=== PATIENT | female | born 1970 | race Caucasian/White ===

== ENCOUNTER 2020-10-01 11:04 | Outpatient (REF) | payer OTHER, SELFPAY ==
[2020-10-01 12:18] LABS: MANUAL DIFF FLAG NO
[2020-10-01 13:06] LABS: Basophils Percent Auto 0.4 % (0-2); Eosinophils Absolute Auto 0.1 X10*3/uL (0.0-0.4); Eosinophils Percent Auto 1.6 % (0-4); Hematocrit 43.3 % (37-47); Hemoglobin 14.6 g/dl (12.0-16.0); Imm Gran Abs Auto 0.02 X10*3/uL (0.00-0.03); Imm Gran Pct Auto 0.3 % (0.0-0.4); Lymphocytes Absolute Auto 2.1 X10*3/uL (1.2-4.9); Lymphocytes Percent Auto 29.9 % (20-40); Mean Corpuscular HGB Conc 33.7 g/dl (31.0-35.0); Mean Corpuscular Hemoglobin 31.1 pg (27.0-33.0); Mean Corpuscular Volume 92.1 fL (80-98); Mean Platelet Volume 12.8 fL (9.4-12.3); Monocytes Absolute Auto 0.6 X10*3/uL (0.1-1.2); Monocytes Percent Auto 8.3 % (2-11); Neutrophils Absolute Auto 4.1 X10*3/uL (2.0-8.3); Neutrophils Percent Auto 59.5 % (45-73); Platelet Count 199 X10*3/uL (160-400); Red Cell Distribution Width 12.3 % (11.0-16.0); White Blood Count 6.9 X10*3/uL (4.8-10.8)
[2020-10-01 13:16] LABS: Alanine Aminotransferase 15 U/L (0-31); Albumin Level 4.4 g/dL (3.5-5.0); Alkaline Phosphatase 46 U/L (39-117); Anion Gap 12 (12-20); Aspartate Amino Transferase 20 U/L (5-31); Bilirubin Total 0.7 mg/dL (0.0-1.0); Blood Urea Nitrogen 10 mg/dL (9-16); Calcium 9.1 mg/dL (8.4-10.2); Carbon Dioxide 26 mmol/L (22-29); Chloride 100 mmol/L (96-108); Cholesterol 189 mg/dL; Estimated Glomerular Filt Rate > 60; Glucose Fasting 82 mg/dL (60-99); HDL Cholesterol 50 mg/dL; LDL Cholesterol Calculated 101 mg/dl; Potassium 4.2 mmol/l (3.3-5.1); Total Protein 8.1 g/dL (6.5-8.0); Triglycerides 192 mg/dL
[2020-10-01 13:19] LABS: Sodium 134 mmol/L (135-145)
[2020-10-01 13:40] LABS: TSH reflex Free T4 1.41 mIU/mL (0.32-4.0)
[2020-10-01 13:58] LABS: Estimated Average Glucose 103 mg/dL; Hemoglobin A1c % 5.2 %
== END 2020-10-01 11:05 | disposition home or self-care (01) ==
LOC: HO.LAB 11:04
PROVIDERS: PCP Physician Assistant; Visit Provider Physician Assistant
DX: Z13.29 Encounter for screening for other suspected endocrine disorder (principal); E78.9 Disorder of lipoprotein metabolism, unspecified
CPT/HCPCS: 36415; 80053; 80061; 83036; 84443; 85025

== ENCOUNTER 2020-11-04 07:54 | Outpatient (REF) | payer OTHER, SELFPAY ==
--- NOTE | 2020-11-04 07:57 | MM_ITS ---
EXAMINATION: MM SCREENING DIGITAL BREAST TOMOSYNTHESIS, BILATERAL CLINICAL INFORMATION: Screening. Asymptomatic. The lifetime risk of breast cancer based on the Tyrer-Cuzick Model is 7%. COMPARISON: Mammography: 01/16/2019, 07/14/2017, 08/13/2014 TECHNIQUE: Digital breast tomosynthesis is performed in both the craniocaudal and mediolateral oblique views along with computer-aided detection (CAD). Synthesized 2D images are generated from the tomosynthesis. Additional exaggerated right CC view is provided. FINDINGS: The breasts are heterogeneously dense, which may obscure small masses (ACR BI-RADS breast composition Category c). There are no significant masses, abnormal calcifications, or other abnormalities. The axilla and skin contours are unremarkable. MM/MM tomosynthesis screening BI IMPRESSION: No mammographic evidence of malignancy. ASSESSMENT: BI-RADS 1: Negative RECOMMENDATION: Routine annual mammography screening. This patient's information was entered into a reminder system with a target due date for their next mammogram.
== END 2020-11-04 07:55 | disposition home or self-care (01) ==
LOC: HO.MAMMO 07:54
PROVIDERS: PCP Physician Assistant; Visit Provider Physician Assistant
DX: Z12.31 Encounter for screening mammogram for malignant neoplasm of breast (principal)
CPT/HCPCS: 77063; 77067

== ENCOUNTER 2020-11-10 14:33 | Outpatient (REF) | payer OTHER, SELFPAY ==
[2020-11-10 15:23] LABS: COVID-19 Test Negative (Negative); IDNOW Serial# 55D5AD1C
== END 2020-11-10 14:34 | disposition home or self-care (01) ==
LOC: HO.EMPCOV 14:33
PROVIDERS: PCP Physician Assistant; Visit Provider Internal Medicine
DX: Z20.828 Contact with and (suspected) exposure to other viral communicable diseases (principal)
CPT/HCPCS: 87635; C9803

== ENCOUNTER 2020-11-17 13:25 | Outpatient (REF) | payer OTHER, SELFPAY ==
[2020-11-17 14:04] LABS: COVID-19 Test Negative (Negative)
== END 2020-11-17 13:26 | disposition home or self-care (01) ==
LOC: HO.EMPCOV 13:25
PROVIDERS: Visit Provider Internal Medicine
DX: Z20.828 Contact with and (suspected) exposure to other viral communicable diseases (principal)
CPT/HCPCS: 87635; C9803

== ENCOUNTER 2021-01-06 07:45 | Outpatient (REF) | payer OTHER, SELFPAY ==
[2021-01-06 08:04] LABS: COVID-19 Test Negative (Negative); IDNOW Serial# 55D5AD1C
== END 2021-01-06 07:46 | disposition home or self-care (01) ==
LOC: HO.EMPCOV 07:45
PROVIDERS: Visit Provider Internal Medicine
DX: Z20.822 Contact with and (suspected) exposure to COVID-19 (principal)
CPT/HCPCS: 36415; 87635; C9803

== ENCOUNTER 2021-01-07 12:24 | Outpatient (REF) | payer OTHER, SELFPAY ==
[2021-01-07 12:44] LABS: COVID-19 Test Positive (Negative)
== END 2021-01-07 12:25 | disposition home or self-care (01) ==
LOC: HO.LAB 12:24
PROVIDERS: Visit Provider Internal Medicine
DX: Z20.822 Contact with and (suspected) exposure to COVID-19 (principal)
CPT/HCPCS: 87635; C9803

== ENCOUNTER 2021-02-20 13:59 | Outpatient (REF) | payer OTHER, SELFPAY ==
[2021-02-21 07:24] LABS: SARS COV2 IgG Positive (Negative)
== END 2021-02-20 14:00 | disposition home or self-care (01) ==
LOC: HO.HMGCLDS 13:59
PROVIDERS: Hospitalist; Visit Provider Nurse Practitioner Family
DX: U07.1 COVID-19 (principal)
CPT/HCPCS: 36415; 86769

== ENCOUNTER 2021-04-08 13:10 | Outpatient (REF) | payer OTHER, SELFPAY ==
[2021-04-09 04:26] LABS: SARS COV2 IgG Positive (Negative)
== END 2021-04-08 13:11 | disposition home or self-care (01) ==
LOC: HO.HMGCLDS 13:10
PROVIDERS: PCP Physician Assistant; Visit Provider Physician Assistant
DX: U07.1 COVID-19 (principal); Z01.84 Encounter for antibody response examination
CPT/HCPCS: 36415; 86769

== ENCOUNTER 2021-06-23 16:04 | Outpatient (REF) | payer OTHER, SELFPAY ==
--- NOTE | ~2021-06-23 | XR_ITS ---
EXAMINATION: XR LUMBOSACRAL SPINE CLINICAL INFORMATION: Lower back pain. COMPARISON: None TECHNIQUE: Three views of the lumbosacral spine. FINDINGS: There are 5 plc-ooh-fajscbt lumbar vertebrae. The bony texture and alignment are satisfactory. No acute fracture, spondylolisthesis, or spondylolysis identified. Disc spaces are maintained. No evidence of facet arthropathy. No significant sacroiliac joint abnormality is seen. XR/XR lumbar spine 2-3V IMPRESSION: No significant lumbar spine abnormality appreciated.
--- NOTE | ~2021-06-23 | XR_ITS ---
EXAMINATION: XR CERVICAL SPINE CLINICAL INFORMATION: Neck pain. COMPARISON: 01/21/2017 TECHNIQUE: Three views of the cervical spine were obtained. FINDINGS: No abnormal prevertebral soft tissue swelling is seen. No acute cervical spine fracture is noted. Bony alignment unremarkable. There is some spurring of the joints of Luschka seen at the C3-C4 and C4-C5 levels, but without oblique views, difficult to tell what degree of neural foraminal encroachment may be present. Disc spaces are maintained. XR/XR cervical spine 3V IMPRESSION: No evidence of acute fracture of the cervical spine. Mild degenerative change is seen at the C3-C4 and C4-C5 levels, similar to study of 01/21/2017.
== END 2021-06-23 16:05 | disposition home or self-care (01) ==
LOC: HO.HMGCX 16:04
PROVIDERS: PCP Physician Assistant; Visit Provider Physician Assistant
DX: M99.01 Segmental and somatic dysfunction of cervical region (principal); M54.5 Low back pain
CPT/HCPCS: 72040; 72100

== ENCOUNTER 2021-06-27 13:57 | Outpatient (REF) | payer OTHER, SELFPAY ==
[2021-06-29 03:41] LABS: SARS COV2 IgG Positive (Negative)
== END 2021-06-27 13:58 | disposition home or self-care (01) ==
LOC: HO.HMGCLDS 13:57
PROVIDERS: PCP Physician Assistant; Visit Provider Physician Assistant
DX: Z20.822 Contact with and (suspected) exposure to COVID-19 (principal)
CPT/HCPCS: 36415; 86769

== ENCOUNTER 2021-09-21 11:48 | Outpatient (REF) | payer OTHER, SELFPAY ==
--- NOTE | ~2021-09-21 | XR_ITS ---
EXAMINATION: XR HAND, LEFT CLINICAL INFORMATION: Pain in the left hand COMPARISON: None TECHNIQUE: PA, lateral, and oblique views of the left hand. FINDINGS: No fracture or dislocation. Alignment is anatomic. Joint spaces are maintained. The soft tissues are unremarkable. XR/XR hand LT min 3V IMPRESSION: Normal left hand.
== END 2021-09-21 11:49 | disposition home or self-care (01) ==
LOC: HO.HMGCX 11:48
PROVIDERS: PCP Physician Assistant; Visit Provider Physician Assistant
DX: M79.642 Pain in left hand (principal)
CPT/HCPCS: 73130

== ENCOUNTER 2021-10-05 09:07 | Outpatient (REF) | payer OTHER, SELFPAY ==
[2021-10-05 10:12] LABS: Estimated Average Glucose 94 mg/dL; Hemoglobin A1c % 4.9 %
[2021-10-05 10:24] LABS: Alanine Aminotransferase 20 U/L (0-31); Albumin Level 4.3 g/dL (3.5-5.0); Alkaline Phosphatase 72 U/L (39-117); Anion Gap 13 (12-20); Aspartate Amino Transferase 21 U/L (5-31); Bilirubin Total 0.4 mg/dL (0.0-1.0); Blood Urea Nitrogen 14 mg/dL (9-16); Calcium 9.2 mg/dL (8.4-10.2); Carbon Dioxide 26 mmol/L (22-29); Chloride 103 mmol/L (96-108); Cholesterol 200 mg/dL; Estimated Glomerular Filt Rate > 60; Glucose Fasting 92 mg/dL (60-99); HDL Cholesterol 54 mg/dL; LDL Cholesterol Calculated 124 mg/dl; Potassium 4.7 mmol/L (3.3-5.1); Sodium 137 mmol/L (135-145); Total Protein 7.8 g/dL (6.5-8.0); Triglycerides 110 mg/dL
[2021-10-05 10:48] LABS: TSH reflex Free T4 2.23 uIU/mL (0.32-4.0)
== END 2021-10-05 09:08 | disposition home or self-care (01) ==
LOC: HO.LAB 09:07
PROVIDERS: PCP Physician Assistant; Visit Provider Physician Assistant
DX: Z13.29 Encounter for screening for other suspected endocrine disorder (principal); Z78.9 Other specified health status
CPT/HCPCS: 36415; 80053; 80061; 83036; 84443

== ENCOUNTER 2021-10-26 08:05 | Outpatient (REF) | payer OTHER, SELFPAY ==
[2021-10-29 02:51] LABS: HPV mRNA E6/E7 rflx Not Detected (Not Detected)
== END 2021-10-26 08:06 | disposition home or self-care (01) ==
LOC: HO.LAB 08:05
PROVIDERS: PCP Physician Assistant; Visit Provider Obstetrics & Gynecology
DX: Z01.411 Encounter for gynecological examination (general) (routine) with abnormal findings (principal); Z11.51 Encounter for screening for human papillomavirus (HPV); N95.0 Postmenopausal bleeding
CPT/HCPCS: 87624; 88142

== ENCOUNTER 2021-11-06 07:32 | Outpatient (REF) | payer OTHER, SELFPAY ==
--- NOTE | ~2021-11-06 | MM_ITS ---
EXAMINATION: MM SCREENING DIGITAL BREAST TOMOSYNTHESIS, BILATERAL CLINICAL INFORMATION: Screening. Asymptomatic. The lifetime risk of breast cancer based on the Tyrer-Cuzick Model is 8%. COMPARISON: Mammography: 11/04/2020, 01/16/2019, 07/14/2017 TECHNIQUE: Digital breast tomosynthesis is performed in both the craniocaudal and mediolateral oblique views along with computer-aided detection (CAD). Synthesized 2D images are generated from the tomosynthesis. FINDINGS: The breasts are heterogeneously dense, which may obscure small masses (ACR BI-RADS breast composition Category c). Breast tissue composition borders on average fibroglandular. There are no significant masses, abnormal calcifications, or other abnormalities. The axillary and skin contours are unremarkable. There are incidental dermal calcifications again noted, grouped anterior upper outer right breast. MM/MM tomosynthesis screening BI IMPRESSION: No mammographic evidence of malignancy. ASSESSMENT: BI-RADS 2: Benign RECOMMENDATION: Routine annual mammography screening. This patient's information was entered into a reminder system with a target due date for their next mammogram.
== END 2021-11-06 07:33 | disposition home or self-care (01) ==
LOC: HO.MAMMO 07:32
PROVIDERS: Visit Provider Physician Assistant
DX: Z12.31 Encounter for screening mammogram for malignant neoplasm of breast (principal)
CPT/HCPCS: 77063; 77067

== ENCOUNTER 2021-11-10 09:00 | Outpatient (REF) | payer OTHER, SELFPAY ==
--- NOTE | ~2021-11-10 | US_ITS ---
EXAMINATION: US PELVIS CLINICAL INFORMATION: Postmenopausal bleeding COMPARISON: None TECHNIQUE: Ultrasound of the pelvis is performed using both transabdominal and transvaginal transducers along with Doppler. Transvaginal imaging is performed due to inadequate visualization transabdominally. FINDINGS: The uterus is anteverted and measures 8 x 4.8 x 6.1 cm in dimension. There is a 1.9 x 2.2 x 2.1 cm heterogeneous predominately hyperechoic lesion in the anterior uterine body adjacent to the endometrium suggestive of a submucosal fibroid. No other focal uterine lesion is seen. Endometrial thickness measures 0.6-0.7 cm. The ovaries are normal-appearing. The right ovary measures 3.4 x 2 x 3.3 cm. The left ovary measures 2.6 x 1.6 x 8.1 cm. There is no fluid in the pelvis. US/US pelvic and transvaginal IMPRESSION: 1.9 x 2.2 x 2.1 cm probable submucosal uterine fibroid in the anterior uterine body adjacent to the endometrium. The endometrium is upper normal in thickness for a postmenopausal patient measuring 6-7 mm.
== END 2021-11-10 09:01 | disposition home or self-care (01) ==
LOC: HO.HMGCX 09:00
PROVIDERS: PCP Physician Assistant; Visit Provider Obstetrics & Gynecology
DX: N95.0 Postmenopausal bleeding (principal)
CPT/HCPCS: 76830; 76856

== ENCOUNTER → 2021-11-16 14:20 | Outpatient (BNVA) | payer OTHER, SELFPAY | PROVIDERS: PCP Physician Assistant; Visit Provider Obstetrics & Gynecology ==

== ENCOUNTER 2021-11-17 08:00 | Outpatient (RCR) | payer OTHER, SELFPAY ==
--- NOTE | 2021-07-01 15:46 | MHC.PT.EP ---
[facility] [place] Office [place] Office [place] Office [address] Papa Badillo [address] [phone] F: [phone] F: [phone] F: [phone] F: [phone] Physical Therapy Plan of Care Date of Evaluation: Date of Surgery: Diagnosis: This is a 50 yo female presenting to skilled PT with a script for low back pain, somatic dysfun of cervical spine. Assessment: Patient comes into PT today reporting long history of neck and low back pain. 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 She reports both of these pain patterns have increased over the past 2 years since COVID. She has made some big life style changes for diet and exercise however symptoms have continued and she would like to learn how to prevent further pain. She currently enjoys walking, hiking and does 20 min daily matt work outs. She is very active. She has also tried to be conscious of footwear and posture. In terms of low back symptoms she report lumbar pain that can radiate laterally into the hips ending at the greater trochanters (L is worse than the R) and described as achy. She also has thoracic pain described as burning at the SP and into the R rhomboids as well. Additionally, she has cervical stiffness, arthritis and on occasion medial three finger B numbness and tingling. Her neck pain causes HAs and tension occurring 2-3 times as week starting at the suboccipitals and wrapping up to the forehead. Examination demos pain that can range up to 6/10 at the worst. She demos decreased lumbar extension, gross cervical ROM and L hop rotation ROM, impaired hip/glut strength, tenderness along cervical muscles and decreased lumbar, thoracic and cervical joint mobility, impaired pain tolerance with MAYBERRY management and radiating symptoms with decreased and impaired muscle activation/s/s consistent with SIJ involvement. She would benefit from PT 2x/wk for 6 wks to address impairments, implement HEP, improve pain and optimize functional mobility/return to work in full. Frequency and Duration: The patient will be seen 2x/wk for 6wks Short Term Goals: I in HEP Report no more than 1 MAYBERRY per week Demo good SIJ alignment Rn Admit Goals: Report 75% improvement in sleeping through the night Demo proper lifting and squatting techniques Return to walking routine for exercise without pain Demo 5/5 UE and LE strength and normal ROM without pain Treatment Plan: Modalities to reduce pain, spasms and effusion. Manual therapy to restore motion and function. Therapeutic exercise to improve strength and flexibility. Neuromuscular re-education for posture and balance. Therapeutic activities to return to functional activities of daily living. Electronically signed by: Tia Cason PT Please sign and return to therapist. Thank you for your referral.
--- NOTE | 2021-11-26 15:38 | MHC.PT.DC ---
[facility] [place] Office [place] Office [place] Office [address] Papa Badillo [address] [phone] F: [phone] F: [phone] F: [phone] F: [phone] Physical Therapy Discharge Report Diagnosis: This is a 50 yo female presenting to skilled PT with a script for low back pain, somatic dysfun of cervical spine. Date of Surgery: Date of Evaluation: 07/01/21 Date of Discharge: 11/26/21 Treatments to Date: 28 Cancellations to Date: 3 No Shows to Date: 0 Discharge Status: Achieved Goals Improved Function Independent with HEP Discharge Summary: Pt I with HEP and is compliant and motivated to perform regular exercise routine. She understands modifications and limits. Pt pelvic alignment has improved since eval and Pt has achieved most goals. Pt conts with pain with sleeping and burning D/S which she was educated on to follow up with MD. Pt DC with ex program at this time. Electronically signed by: Tia Cason PT Please sign and return to therapist. Thank you for your referral.
== END 2021-11-26 15:38 | disposition home or self-care (01) ==
LOC: HO.PTCHIC 08:00
PROVIDERS: PCP Physician Assistant; Visit Provider Physician Assistant
DX: M51.9 Unspecified thoracic, thoracolumbar and lumbosacral intervertebral disc disorder (principal); M54.50 Low back pain, unspecified; M99.01 Segmental and somatic dysfunction of cervical region
CPT/HCPCS: 97110; 97140; 97162

== ENCOUNTER 2021-12-10 10:21 | Outpatient (REF) | payer OTHER, SELFPAY | END 2021-12-10 10:22 | disposition home or self-care (01) | LOC: HO.LAB 10:21 | PROVIDERS: PCP Physician Assistant; Visit Provider Obstetrics & Gynecology | DX: N95.0 Postmenopausal bleeding (principal) | CPT/HCPCS: 58100; 88305 ==

== ENCOUNTER → 2021-12-24 12:04 | Outpatient (BNVA) | payer OTHER, SELFPAY | PROVIDERS: PCP Physician Assistant; Visit Provider Obstetrics & Gynecology ==

== ENCOUNTER 2022-01-08 07:29 | Day surgery (SDC) | payer OTHER, SELFPAY ==
[2022-01-06 15:37] VITALS: BMI 21.2
--- NOTE | 2022-01-07 11:00 | HO.ANESPROP2 ---
Documented by User: Anabella Denis NP 01/07/22 11:00 HPI - Anesthesia Eval Consult details Narrative: 51yo F for D&C Hysteroscopy, Possible Polypectomy, Possible Myomectomy PMFSH Active Problems Active Problems: All Active Problems (Updated 01/06/22 @ 15:37 by Diana Martino, RN) Annual physical exam (Acute) Cervical (neck) region somatic dysfunction (Acute) Borderline high cholesterol (Acute) Screening for diabetes mellitus (DM) (Acute) Screening for hypothyroidism (Acute) Perimenopausal (Acute) COVID-19 (Acute) Lumbar spine pain (Acute) Left hand pain (Acute) Otitis externa (Acute) Tick bite (Acute) Well woman exam (Acute) Postmenopausal bleeding (Acute) Myoma (Acute) Past Medical History Medical History (Updated 01/06/22 @ 15:37 by Diana Martino RN) No pertinent past medical history Family History Family History Father Stroke Mother Cancer Colon cancer Family/Other Bipolar 1 disorder Surgical History Surgical History (Updated 01/06/22 @ 15:36 by Diana Martino RN) Hx of colonoscopy No pertinent past surgical history Social History Social History Housing: House Are you a primary post anesthesia care unit nurse to a significant other at home: No Do you presently have visiting nurse or other home services: No Alcohol intake: current Alcohol intake frequency: a few times a week Patient Tobacco Use Status: Never used Tobacco e-Cigarette/Vaping Use: Never Used Second Hand Smoke Exposure: No Use of substances other than those prescribed or required for medical reasons: No Have you been hit, kicked, punched, or otherwise hurt by someone within the past year? 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[employer] Cognitive needs: No Hearing needs: No Vision needs: No Meds Allergies Allergy/AdvReac Type Severity Reaction Status Date / Time No Known Allergies Allergy Verified 01/06/22 15:37 Home Medications Medication Instructions Recorded Confirmed Last Taken Type ibuprofen 01/08/22 01/08/22 01/08/22 History Exam Exam Date and Time: January 07, 2022 1100 Height,Weight and Vital Signs: Height 5 ft 7 in Weight 61.689 kg Assessment and Plan Assessment Anesthesia Assessment: Chart Reviewed Documented by User: Lemuel Feliciano MD 01/08/22 08:18 [facility] Past Medical History Medical History (Updated 01/06/22 @ 15:37 by Diana Martino RN) No pertinent past medical history Family History Family History Father Stroke Mother Cancer Colon cancer Family/Other Bipolar 1 disorder Family history of problems with anesthesia: No Surgical History Surgical History (Updated 01/06/22 @ 15:36 by Diana Martino RN) Hx of colonoscopy No pertinent past surgical history History of Problems with Anesthesia: No Social History Social History Housing: House Are you a primary post anesthesia care unit nurse to a significant other at home: No Do you presently have visiting nurse or other home services: No Alcohol intake: current Alcohol intake frequency: a few times a week Patient Tobacco Use Status: Never used Tobacco e-Cigarette/Vaping Use: Never Used Second Hand Smoke Exposure: No Use of substances other than those prescribed or required for medical reasons: No Have you been hit, kicked, punched, or otherwise hurt by someone within the past year? 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[employer] Cognitive needs: No Hearing needs: No Vision needs: No Meds Allergies Allergy/AdvReac Type Severity Reaction Status Date / Time No Known Allergies Allergy Verified 01/06/22 15:37 Home Medications Medication Instructions Recorded Confirmed Last Taken Type ibuprofen 01/08/22 01/08/22 01/08/22 History Exam Airway Mallampati Class: II TM Dist: >3cm Neck ROM: Full Assessment and Plan Assessment Anesthesia Assessment: Anesthesia Plan Discussed Final Anesthetic Review Family History of Problems with Anesthesia: No History of Problems with Anesthesia: No NPO: Yes ASA Class: II Final Preanesthetic Review: No Changes in Pt Med Stat, Meds/Allgs Chart Reviewed, Consent Obtained/Reviewed and Anes Risks/Benef Reviewed Patient Risk: Intermediate Procedure Risk: Low Anesthetic Plan Anesthetic Plan: GA Disposition: Standard PACU
[2022-01-08 07:32] VITALS: BP 137/68; PULSE 62; RESP 18; TEMP 36.1; O2SAT 97
[2022-01-08 07:55] LABS: UPreg QC Valid YES; Urine Pregnancy NEGATIVE (NEGATIVE)
[2022-01-08] MEDS: Lactated Ringers 1,000 ML 100 ML IVCONT (08:39)
--- NOTE | 2022-01-08 09:04 | MHC.SHP ---
Pre-Procedural Eval Section A Date of Service: 01/08/22 The patient is an INPATIENT: No Changes since office visit: No Cold of Flu in the past 2 weeks, No New Medical Problems, No Changes in Medication and No Patient answered all questions The History & Physical has been completed within 30 days and I have reviewed it.: Yes Section B Chief Complaint: PMB Allergies: Allergies Allergy/AdvReac Type Severity Reaction Status Date / Time No Known Allergies Allergy Verified 01/06/22 15:37 Plan Diagnosis/Plan: Unchanged I have reviewed the history and physical and performed a pertinent physical examination on my patient. No changes have occurred unless specified.
--- NOTE | 2022-01-08 09:27 | PM.OP ---
Brief Operative Note Date of Service: 01/08/22 Pre-op diagnosis: Postmenopausal bleeding with submucosal myoma by ultrasound Post-op diagnosis: same (Submucosal myoma) Procedure: Hysteroscopy D&C, Polypectomy Surgeon: Jerzy Arce MD Anesthesia: MAC Was an Superintendent Track used for this Procedure?: No Estimated blood loss (mL): 0 Pathology: other (Endometrial Scrapping. Submucosal myoma) Condition: stable Disposition: PACU
--- NOTE | 2022-01-08 09:28 | W.PM.OPN ---
Operative Note Operative Note Date of Service: 01/08/22 Narrative: Preop Diagnosis: Postmenopausal bleeding and submucosal myoma by ultrasound Operation: Diagnostic Hysteroscopy, Dilataion & Curettage and myomectomy Post Op Diagnosis: Submucosal myoma QBL: Minimal Anesthesia: MAC Surgeon: Jerzy Arce MD Fire Sprinkler Service Technician: None Complication: None Pathology: Endometrial Scrapings, submucosal myoma Complication: None Pathology: Endometrial Scrapings, submucosal myoma Procedure: The patient was put in the dorsal lithotomy position, scrubbed, and draped in the usual manner. A sterile speculum was inserted in the patient's vagina. The anterior lip of the cervix was grasped with a single tooth tenaculum. The cervix was dilated up to 5 mm, then the scope was inserted in the patient's uterus. Inspection revealed submucosal myoma. The Myosure Reach device was used; it was introduced through the operative channel and myomectomy done with no complications. At the end of the procedure, all instruments were taken out of the patient uterine and vaginal cavity. The single tooth tenaculum was removed and homeostasis was assured using pressure,. The patient tolerated the procedure well and was transferred to the PACU in a stable condition.
[2022-01-08 09:34] VITALS: BP 111/66; PULSE 61; RESP 18; TEMP 36.8; O2SAT 99
[2022-01-08 09:39] VITALS: BP 115/68; PULSE 53; RESP 18; O2SAT 100
[2022-01-08 09:44] VITALS: BP 121/75; PULSE 53; RESP 18; O2SAT 97
[2022-01-08 09:49] VITALS: BP 123/68; PULSE 57; RESP 18; O2SAT 98
[2022-01-08 10:04] VITALS: BP 115/61; PULSE 59; RESP 18; TEMP 36.6; O2SAT 99
== END 2022-01-08 10:43 | disposition home or self-care (01) ==
PROVIDERS: PCP Physician Assistant; Visit Provider Obstetrics & Gynecology
PROC: 0UDB8ZZ Extraction of Endometrium, Via Natural or Artificial Opening Endoscopic (ICD-10-PCS; CPT 58558; principal; 2022-01-08 09:00)
DX: N95.0 Postmenopausal bleeding (principal); D25.0 Submucous leiomyoma of uterus
CPT/HCPCS: 58561; 81025; 88305; J1100; J2250; J2405; J3010

== ENCOUNTER → 2022-01-21 11:58 | Outpatient (BNVA) | payer OTHER, SELFPAY | PROVIDERS: Visit Provider Obstetrics & Gynecology ==

== ENCOUNTER → 2022-03-02 11:24 | Outpatient (BNVA) | payer OTHER, SELFPAY | PROVIDERS: Visit Provider Physician Assistant | DX: Z13.89 Encounter for screening for other disorder (principal) ==

== ENCOUNTER 2022-04-05 08:28 | Outpatient (REF) | payer OTHER, SELFPAY ==
[2022-04-05 09:46] LABS: Binax Internal Control QC Valid; Binax Now Covid-19 Ag Negative (Negative); Binax Performed by: HO.TORG
== END 2022-04-05 08:29 | disposition home or self-care (01) ==
LOC: HO.HMGCLDS 08:28
PROVIDERS: Visit Provider Nurse Practitioner Family
DX: Z13.89 Encounter for screening for other disorder (principal)

== ENCOUNTER 2022-04-26 09:03 | Day surgery (SDC) | payer OTHER, SELFPAY ==
[2022-04-26 09:39] VITALS: BP 132/82; PULSE 80; RESP 16; TEMP 37.1; O2SAT 99; BMI 21.2
--- NOTE | 2022-04-26 11:08 | MHC.SHP ---
Pre-Procedural Eval Section A Date of Service: 04/26/22 The patient is an INPATIENT: No Changes since office visit: No Cold of Flu in the past 2 weeks, No New Medical Problems, No Changes in Medication and No Patient answered all questions The History & Physical has been completed within 30 days and I have reviewed it.: Yes Section B Chief Complaint: trigger finger Allergies: Allergies Allergy/AdvReac Type Severity Reaction Status Date / Time No Known Allergies Allergy Verified 01/06/22 15:37 Plan I have reviewed the history and physical and performed a pertinent physical examination on my patient. No changes have occurred unless specified.
--- NOTE | 2022-04-26 11:09 | W.PM.OPN ---
Operative Note Operative Note Date of Service: 04/26/22 Narrative: Operative Note Preop diagnosis: 1. right middle finger Trigger finger Postop diagnosis: 1. right middle finger Trigger finger Procedure: 1. right middle finger A1 humza release Surgeon: Aletha Mcknight MD Anesthesia: local block using 1% lidocaine with epinephrine Findings: No locking or catching after A1 humza release EBL: Less than 5 mL Tourniquet time: None Specimens: None Complications: None Disposition: Brought to recovery room in stable condition Plan: Follow-up for 10-14 days for wound check and suture removal Indications: The patient is 51 years old, with a right middle finger trigger finger that has been unresponsive to nonoperative management. The risks and benefits of operative treatment including but not limited to risk of damage to blood vessels, nerves, tendons, infection, persistent pain, persistent symptoms, recurrence or possible need for additional surgery were discussed with the patient and the patient wishes to proceed with surgery. Procedure: Once consent was obtained a local block was performed in the preop area using a combination of 1% lidocaine with epinephrine. The patient was then brought back to the operating suite and placed on the operative table in supine position. A tourniquet was applied to the proximal aspect of the right upper extremity and the limb was prepped and draped in a standard surgical fashion. Once assured that we had a good block, a 1.5 cm oblique incision was made centered over the A1 humza of the right middle finger . The incision was made through the skin to the subcutaneous tissues using a #15 blade. Careful dissection was made down to the level of the A1 humza using tenotomy scissors, with care being taken to protect the nearby neurovascular structures. A longitudinal incision was made in the A1 humza 1st using a #15 blade, then using tenotomy scissors under direct visualization. The A1 humza was noted to be thickened. Following our A1 humza release, we no longer saw any locking or catching of the digit with flexion and extension. Once satisfied with our A1 humza release the wound was copiously irrigated with normal saline and hemostasis was obtained with a brief period of local pressure. The skin edges were reapproximated with some 5.0 nylon suture material and a sterile dressing was applied. The patient appears to have tolerated the procedure well and with no complications. All digits were well vascularized at the conclusion of the case.
[2022-04-26 11:48] VITALS: BP 135/68; PULSE 614; RESP 18; TEMP 37.2; O2SAT 97
== END 2022-04-26 12:00 | disposition home or self-care (01) ==
PROVIDERS: PCP Physician Assistant; Visit Provider Orthopaedic Surgery
PROC: (CPT 26055; principal; 2022-04-26 10:10)
DX: M65.331 Trigger finger, right middle finger (principal); N95.0 Postmenopausal bleeding
CPT/HCPCS: 26055; 58100; J0171

== ENCOUNTER 2022-04-26 13:28 | Outpatient (REF) | payer OTHER, SELFPAY | END 2022-04-26 13:29 | disposition home or self-care (01) | LOC: HO.LAB 13:28 | PROVIDERS: Visit Provider Obstetrics & Gynecology | DX: N95.0 Postmenopausal bleeding (principal) | CPT/HCPCS: 88305 ==

== ENCOUNTER 2022-09-20 08:00 | Outpatient (RCR) | payer OTHER, SELFPAY ==
--- NOTE | 2022-07-30 17:59 | MHC.OT.EP ---
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 Mild digit locking noted during this eval Pt will benefit from OT to address these problems Frequency and Duration: The patient will be seen 2x wk x 4 wks Short Term Goals: Demo indep with HEP DIPj flex to 45 deg with ORL stretch PIPj ext passive ext to neutral with use of night volar gutter digit orthosis Dec digit edema and pain with use of adam sleeve Pain 0/10 at rest Superintendent Power Goals: Painfree Right hand AROM PIPj ext to neutral Right gas plant technician to 45 lb Report occasional low pain and no digit locking with daily activities. Treatment Plan: Therapeutic Exercise Therapeutic Activity Home Exercise Program Splinting Patient Education Edema Control Ultrasound Iontophoresis Paraffin Fluidotherapy Soft Tissue Mobilization Electronically Signed By: Malaika Lewis OT CHT CLT Please Sign and return to therapist. Thank you once again for your referral.
--- NOTE | 2022-09-20 11:19 | MHC.OT.DC ---
[address] [phone] F: [phone] Occupational Therapy Discharge Note Provider: Willard Mascorro Diagnosis: Right middle finger trigger release with stiffness Date of Surgery: 04/26/22 Date of Evaluation: 07/28/22 Date of Discharge: 09/20/22 Treatments to Date: 10 Cancellations to Date: No Shows to Date: Discharge Status: Improved Function Independent with HEP Discharge Summary: Plateau in PIPj flexion contracture at 20 deg, 12 deg after rx. Passive PIP ext to neutral pre rx. Unable to tolerate night digit volar gutter splint for PIPj extension She reports no limitations with her daily activity due to her right hand Pt is planning on purchasing a home paraffin unit and continue with her HEP and LMB PIPj ext splint Electronically Signed By: Malaika Lewis OT CHT CLT Reviewed/agree with student documentation: Therapist: Please Sign and return to therapist, thank you for your referral.
== END 2022-09-20 11:19 | disposition home or self-care (01) ==
LOC: HO.OT 08:00
PROVIDERS: PCP Physician Assistant; Visit Provider Physician Assistant
DX: M25.641 Stiffness of right hand, not elsewhere classified (principal); M65.331 Trigger finger, right middle finger
CPT/HCPCS: 97035; 97110; 97165; 97760

== ENCOUNTER 2022-10-04 07:43 | Outpatient (REF) | payer OTHER, SELFPAY ==
[2022-10-04 11:49] LABS: Hematocrit 41.2 % (37.0-47.0); Hemoglobin 13.5 g/dl (12.0-16.0); Mean Corpuscular HGB Conc 32.8 g/dl (31.0-35.0); Mean Corpuscular Hemoglobin 30.3 pg (27.0-33.0); Mean Corpuscular Volume 92.6 fL (80.0-98.0); Mean Platelet Volume 14.3 fL (9.4-12.3); Platelet Count 167 X10*3/uL (160-400); Red Blood Count 4.45 X10*6/uL (4.20-5.50); Red Cell Distribution Width 12.6 % (11.0-16.0); White Blood Count 7.6 X10*3/uL (4.8-10.8)
[2022-10-04 14:46] LABS: Alanine Aminotransferase 22 U/L (0-31); Albumin Level 4.4 g/dL (3.5-5.0); Alkaline Phosphatase 80 U/L (39-117); Anion Gap 13 (12-20); Aspartate Amino Transferase 23 U/L (5-31); Bilirubin Total 0.5 mg/dL (0.0-1.0); Blood Urea Nitrogen 17 mg/dL (9-16); Calcium 9.7 mg/dL (8.4-10.2); Carbon Dioxide 26 mmol/L (22-29); Chloride 104 mmol/L (96-108); Cholesterol 199 mg/dL; Estimated Glomerular Filt Rate > 60; Glucose Fasting 92 mg/dL (60-99); HDL Cholesterol 49 mg/dL; LDL Cholesterol Calculated 127 mg/dl; Potassium 4.2 mmol/L (3.3-5.1); Sodium 139 mmol/L (135-145); TSH reflex Free T4 3.06 uIU/mL (0.32-4.0); Total Protein 7.5 g/dL (6.5-8.0); Triglycerides 115 mg/dL
== END 2022-10-04 07:44 | disposition home or self-care (01) ==
LOC: HO.HMGCLDS 07:43
PROVIDERS: PCP Physician Assistant; Visit Provider Physician Assistant
DX: E78.9 Disorder of lipoprotein metabolism, unspecified (principal); Z13.29 Encounter for screening for other suspected endocrine disorder; Z13.1 Encounter for screening for diabetes mellitus
CPT/HCPCS: 36415; 80053; 80061; 84443; 85027

== ENCOUNTER 2022-11-08 07:37 | Outpatient (REF) | payer OTHER, SELFPAY ==
--- NOTE | ~2022-11-08 | MM_ITS ---
EXAMINATION: MM SCREENING DIGITAL BREAST TOMOSYNTHESIS, BILATERAL CLINICAL INFORMATION: Screening. Asymptomatic. The lifetime risk of breast cancer based on the Tyrer-Cuzick Model is 7%. COMPARISON: Mammography: 11/06/2021, 11/04/2020, 01/16/2019 TECHNIQUE: Digital breast tomosynthesis is performed in both the craniocaudal and mediolateral oblique views along with computer-aided detection (CAD). Synthesized 2D images are generated from the tomosynthesis. FINDINGS: The breasts are heterogeneously dense, which may obscure small masses (ACR BI-RADS breast composition Category c). There are no significant changes from prior studies. No developing density or architectural abnormality. There are some benign grouped dermal calcifications again seen anterior upper outer right breast. The axilla are unremarkable. MM/MM tomosynthesis screening BI IMPRESSION: No mammographic evidence of malignancy. ASSESSMENT: BI-RADS 2: Benign RECOMMENDATION: Routine annual mammography screening. This patient's information was entered into a reminder system with a target due date for their next mammogram.
== END 2022-11-08 07:38 | disposition home or self-care (01) ==
LOC: HO.MAMMO 07:37
PROVIDERS: PCP Physician Assistant; Visit Provider Physician Assistant
DX: Z12.31 Encounter for screening mammogram for malignant neoplasm of breast (principal)
CPT/HCPCS: 77063; 77067

== ENCOUNTER 2023-03-27 14:20 | Emergency (ER) | payer OTHER, SELFPAY ==
--- NOTE | 2023-03-27 14:22 | ED.ANIMALBIT ---
HPI - Animal Bite General Chief Complaint: Animal Bite <ALMA Moreno Last Filed: 03/27/23 14:28> Stated Complaint: dog bite <ALMA Moreno Last Filed: 03/27/23 14:28> Time Seen by Provider: 03/27/23 14:36 <ALMA Moreno Last Filed: 03/27/23 14:28> Source: patient <ALMA Deutsch Last Filed: 03/27/23 14:55> Mode of arrival: ambulatory <ALMA Deutsch Last Filed: 03/27/23 14:55> Limitations: no limitations <ALMA Deutsch Last Filed: 03/27/23 14:55> History of Present Illness HPI narrative: 52-year-old female presents with dog bite to left lower extremity, this happened prior to arrival, multiple puncture wounds, dog was up-to-date on immunizations. Patient reports that initially was bleeding a lot however now resolved. She immediately cleaned the area. She is due for another tetanus shot at this time. Denies numbness, tingling. <ALMA Deutsch Last Filed: 03/27/23 14:55> Related Data Home Medications: Previous Rx's Medication Instructions Recorded amoxicillin 875 mg-potassium 1 tab PO BID 10 days #20 tabs 03/27/23 clavulanate 125 mg tablet <ALMA Moreno Last Filed: 03/27/23 14:28> Allergies/Adverse Reactions: Allergies Allergy/AdvReac Type Severity Reaction Status Date / Time No Known Allergies Allergy Verified 03/27/23 14:22 <ALMA Moreno Last Filed: 03/27/23 14:28> Review of Systems Review of Systems: Constitutional : No Fever, No Chills, Cardiovascular : No Chest Pain, No SOB Respiratory : No Dyspnea Gastrointestinal : No abdominal pain Musculoskeletal : No Joint Swelling Skin : No rash, positive skin puncture Neuro : No Weakness, No Numbness Psych : No SI/HI <ALMA Deutsch Last Filed: 03/27/23 14:55> Yes all other systems are reviewed and are negative <ALMA Deutsch Last Filed: 03/27/23 14:55> [facility] Past Medical History Attestation statement: The following information was validated with the patient. <ALMA Deutsch - Last Filed: 03/27/23 14:55> Source: old records reviewed and nursing notes reviewed <ALMA Deutsch - Last Filed: 03/27/23 14:55> Medical History: Medical History No pertinent past medical history <ALMA Moreno - Last Filed: 03/27/23 14:28> Surgical History: Surgical History Hx of colonoscopy Hx of dilation and curettage S/P trigger finger release <ALMA Moreno - Last Filed: 03/27/23 14:28> Family History Family History: Family History Father Stroke Mother Cancer Colon cancer Family/Other Bipolar 1 disorder <ALMA Moreno Last Filed: 03/27/23 14:28> Social History Social History: Social History (Updated 11/01/22 @ 09:58 by Tom Lawrence PA-C) Housing: House Are you a primary career technical counselor to a significant other at home: No Do you presently have visiting nurse or other home services: No Alcohol intake: current Alcohol intake frequency: a few times a month Patient Tobacco Use Status: Never used Tobacco e-Cigarette/Vaping Use: Never Used Second Hand Smoke Exposure: No Current occupational status: employed 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[place] Cognitive needs: No Hearing needs: No Vision needs: No <ALMA Moreno Last Filed: 03/27/23 14:28> Physical Exam ED Vital Signs: Vital Signs - 24 hr 03/27/23 14:23 Temperature 98 F Pulse Rate 61 Respiratory Rate 19 Blood Pressure 140/76 H Pulse Oximetry 98 Oxygen Delivery Method Room Air BMI result Body Mass Index 21.6 <ALMA Moreno Last Filed: 03/27/23 14:28> Vital Signs - 24 hr 03/27/23 14:23 Temperature 98 F Pulse Rate 61 Respiratory Rate 19 Blood Pressure 140/76 H Pulse Oximetry 98 Oxygen Delivery Method Room Air BMI result Body Mass Index 21.6 Vital signs stable <ALMA Deutsch - Last Filed: 03/27/23 14:55> Appearance: Alert.? Oriented X3.? No acute distress.? Head: Normocephalic, atraumatic, no step-offs or deformities Eyes: Pupils equal, round and reactive to light.? ENT: Pharynx normal.? Neck: Normal inspection.? Neck supple.? CVS: Normal heart rate and rhythm.? Pulses normal.? Respiratory: No respiratory distress.? Breath sounds normal.? Abdomen: Soft and nontender.? Skin: Skin warm and dry.? Normal skin color.? Normal skin turgor.?+ dog bite to left lower extremity, puncture wounds present, images below Extremities: No lower extremity edema.? No calf ttp. 5/5 strength to bilateral upper and lower extremities Neuro: Oriented X 3.? No motor deficit.? No sensory deficit. CN 2-12 intact <ALMA Deutsch Last Filed: 03/27/23 14:55> Course Course Course Narrative: RME: 52yo F w/no significant past medical history c/o multiple puncture wounds to LLE s/p being bit by friends dog at 1300. Dog and patient up-to-date on vaccinations Deep puncture wound noted to left anterior lower leg, smaller superficial puncture wounds noted to left calf Areas need to be washed/cleaned out. Full HPI, ROS and PE to be performed by primary ED provider. <ALMA Moreno - Last Filed: 03/27/23 14:28> Reevaluation(s) Reevaluation #1: Puncture wounds were cleansed using Betadine, saline, hydrogen peroxide. Large wound was closed softly with Steri-Strips. Patient tolerated well. Will not close with sutures due to increased risk for abscess formation or infection. Will discharge her home on Augmentin for prophylaxis. Educated on worrisome signs and symptoms explained to her if she develops an abscess she may need to be seen by General surgery or wound care since it was a deep puncture. Educated patient on diagnosis and treatment plan, answered all question, patient verbalizes understanding. At this time patient will be discharged home, advised to return with new or worsening symptoms. Educated on worrisome signs and symptoms and when to return. At this time I feel comfortable discharge home. <ALMA Deutsch - Last Filed: 03/27/23 14:55> Time: 14:55 <ALMA Deutsch - Last Filed: 03/27/23 14:55> Medications Administered Discontinued Medications Generic Name Dose Route Start Last Admin Trade Name Freq PRN Reason Stop Dose Admin Diphtheria/Tetanus/Acell Pertussis 0.5 ml 03/27/23 14:39 03/27/23 14:48 Diphth,Pertus(Acell),Tet Adult 0.5 Ml Syringe IM 03/27/23 14:40 0.5 ml .ONCE ONE Administration <ALMA Moreno - Last Filed: 03/27/23 14:28> Medications Administered Discontinued Medications Generic Name Dose Route Start Last Admin Trade Name Freq PRN Reason Stop Dose Admin Diphtheria/Tetanus/Acell Pertussis 0.5 ml 03/27/23 14:39 03/27/23 14:48 Diphth,Pertus(Acell),Tet Adult 0.5 Ml Syringe IM 03/27/23 14:40 0.5 ml .ONCE ONE Administration <ALMA Deutsch Last Filed: 03/27/23 14:55> Medical Decision Making Medical Decision Making MDM Narrative: 52-year-old female presents with dog bite to left lower extremity just prior to arrival, Dog up-to-date on immunizations, patient is due for her tetanus shot. Physical exam with puncture wounds to left lower extremity please refer to images and physical exam portion of chart. Likely puncture wound by dog, concerns for possible infection. No signs of neurovascular compromise or threatened limb. Plan at this time Boostrix, wound irrigation, will gently close large area with Steri-Strips. <ALMA Deutsch Last Filed: 03/27/23 14:55> Differential Diagnosis Differential Diagnoses: The differential diagnosis associated with the presentation includes <ALMA Deutsch Last Filed: 03/27/23 14:55> Likely puncture wound by dog, concerns for possible infection. No signs of neurovascular compromise or threatened limb. <ALMA Deutsch Last Filed: 03/27/23 14:55> Admission/Observation Consideration of admission/observation: Escalation of care including admission/observation considered <ALMA Deutsch Last Filed: 03/27/23 14:55> Unlikely <ALMA Deutsch Last Filed: 03/27/23 14:55> Core Measures AMI core measures followed: Yes <ALMA Deutsch Last Filed: 03/27/23 14:55> Measure exclusions: not indicated <ALMA Deutsch Last Filed: 03/27/23 14:55> Critical Care Time Critical Care Time Critical Care Time: No <ALMA Deutsch Last Filed: 03/27/23 14:55> Discharge Plan Discharge Clinical Impression: Dog bite, Puncture wound <ALMA Moreno Last Filed: 03/27/23 14:28> Patient Disposition: Home, Self-Care <ALMA Moreno Last Filed: 03/27/23 14:28> Instructions: Animal Bite (ED) <ALMA Moreno Last Filed: 03/27/23 14:28> Additional Instructions: Take your medications as prescribed. If you were prescribed antibiotics today, it is important that you take your medication to their entirety, do not skip any doses, do not finish them early. Follow-up with your primary care provider this week. Return to the emergency department with new or worsening symptoms. Such as fevers, chills, chest pain, shortness of breath, nausea, vomiting, dizziness, headache, vision changes, lethargy In case of emergency call 911 <ALMA Moreno Last Filed: 03/27/23 14:28> Prescriptions: New amoxicillin-pot clavulanate 875-125 mg tablet 1 tab PO BID 10 Days Qty: 20 0RF <ALMA Moreno Last Filed: 03/27/23 14:28> Referrals: Physician,Unknown J [Primary Care Provider] - 2 days <ALMA Moreno Last Filed: 03/27/23 14:28> Stand Alone Forms: Work/School Release <ALMA Moreno Last Filed: 03/27/23 14:28>
[2023-03-27 14:23] VITALS: BP 140/76; PULSE 61; RESP 19; TEMP 36.6; O2SAT 98; BMI 21.6
[2023-03-27] MEDS: Diphth,Pertus(ACell),Tet Adult 0.5 ML SYRINGE IM (14:48)
== END 2023-03-27 15:03 | disposition home or self-care (01) ==
LOC: HO.ED 15:00
PROVIDERS: Emergency Provider Emergency Medicine
DX: S81.832A Puncture wound without foreign body, left lower leg, initial encounter (principal); S81.852A Open bite, left lower leg, initial encounter; S80.812A Abrasion, left lower leg, initial encounter; M79.605 Pain in left leg; W54.0XXA Bitten by dog, initial encounter; Y93.9 Activity, unspecified; Y92.9 Unspecified place or not applicable; Y99.9 Unspecified external cause status; Z23 Encounter for immunization
CPT/HCPCS: 90471; 90715; 99282; 99284

== ENCOUNTER 2023-11-07 07:48 | Outpatient (AMB) | payer OTHER, SELFPAY ==
--- NOTE | 2023-11-07 08:03 | A.OFFVIS_ITS ---
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 No complaints. Last Pap/HPV was negative in 11/10 Last Mammogram was BI-RADS 2 in 11/11 Last Colonoscopy was 4 years ago, the recommendation was to repeat in 5 years [facility] Medical History No pertinent past medical history Surgical History Hx of dilation and curettage S/P trigger finger release Hx of colonoscopy Family History Father Stroke Mother Cancer Colon cancer Family/Other Bipolar 1 disorder Social History Housing: House Are you a primary child care attendant to a significant other at home: No Do you presently have visiting nurse or other home services: No Alcohol intake: current Alcohol intake frequency: a few times a month Comment: cramping Patient Tobacco Use Status: Never used Tobacco e-Cigarette/Vaping Use: Never Used Second Hand Smoke Exposure: No Current occupational status: employed 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[place] Cognitive needs: No Hearing needs: No Vision needs: No Female Reproductive History Menstrual Age of Menarche: 12 Menopause type: natural Total pregnancies: 2 Full term: 2 Number of Living Children: 2 Date of last pap smear: 10/26/21 (neg pap and hpv) Date of Mammogram: 11/08/22 Review of Systems Const All systems reviewed & are unremarkable except as noted in HPI and below Card Reports as per HPI Resp Reports as per HPI GI Reports as per HPI and Reports no additional complaints Reports as per HPI Physical Exam Const General: cooperative, healthy appearing and comfortable Chest Chest palpation & inspection: normal inspection of the chest and normal palpation of entire chest wall Breast/axilla inspection: normal inspection of the breasts and normal inspection of the axillae Breast/axilla palpation: normal palpation of the breasts, normal palpation of the axillae and no axillary lymphadenopathy Resp Effort & Inspection: normal respiratory effort Auscultation: clear to auscultation bilaterally Percussion: percussion normal Cardio Palpation: normal PMI Rate: regular rate Rhythm: regular rhythm Heart sounds: no murmurs and no rubs Peripheral pulses: Peripheral pulses 2+ throughout GI Inspection: Yes normal to inspection Palpation (GI): Soft to palpation, nontender, no guarding, not rigid and No hepatosplenomegaly present Percussion: Yes normal to percussion Auscultation: normal bowel sounds Rectal Exam - Female: deferred General: Yes bladder normal to palpation External Female Exam: No lesion Speculum Exam - Vagina: normal appearance of the vagina, normal palpation, normal vaginal discharge and not erythematous Speculum Exam - Cervix: normal appearance of the cervix and normal palpation Bimanual exam- vagina & uterus: normal bimanual exam, normal palpation, uterine size normal, bladder normal to palpation, consistency normal and normal palpation Bimanual Exam- Adnexa, other: normal adnexae, no masses and no tenderness Assessment & Plan Assessment & Plan (1) Well woman exam: Code(s): Z01.419 - Encounter for gynecological examination (general) (routine) without abnormal findings Plan: Co testing not indicated this year. Counseled the patient about the recommended dietary allowance of 1200 mg of Calcium & 600 IU of vitamin D. Mammogram scheduled in a week The patient was instructed to perform monthly self-breast exams and schedule annual exam in a year. All questions answered and the patient verbalized understanding. Coding Level of Care Code Est Pt Prev Care 40-64y(66700) Diagnoses Well woman exam Z01.419
[2023-11-07 08:04] VITALS: BP 96/58; BMI 21.5
== END 2023-11-07 08:44 | disposition home or self-care (01) ==
PROVIDERS: Visit Provider Obstetrics & Gynecology
DX: Z01.419 Encounter for gynecological examination (general) (routine) without abnormal findings (principal)
CPT/HCPCS: 99396

== ENCOUNTER → 2023-11-07 07:48 | Outpatient (BNVA) | payer OTHER, SELFPAY | PROVIDERS: Visit Provider Obstetrics & Gynecology ==

== ENCOUNTER 2023-11-12 08:29 | Outpatient (REF) | payer OTHER, SELFPAY ==
[2023-11-12 11:17] LABS: Hematocrit 37.8 % (37.0-47.0); Hemoglobin 12.5 g/dl (12.0-16.0); Mean Corpuscular HGB Conc 33.1 g/dl (31.0-35.0); Mean Corpuscular Volume 90.9 fL (80.0-98.0); Mean Platelet Volume 12.9 fL (9.4-12.3); Platelet Count 166 X10*3/uL (160-400); Red Blood Count 4.16 X10*6/uL (4.20-5.50); Red Cell Distribution Width 12.5 % (11.0-16.0); White Blood Count 5.1 X10*3/uL (4.8-10.8)
[2023-11-12 11:39] LABS: Alanine Aminotransferase 20 U/L (0-31); Albumin Level 4.2 g/dL (3.5-5.0); Alkaline Phosphatase 71 U/L (39-117); Anion Gap 11 (12-20); Aspartate Amino Transferase 26 U/L (5-31); Bilirubin Total 0.5 mg/dL (0.0-1.0); Blood Urea Nitrogen 14 mg/dL (9-16); Calcium 9.6 mg/dL (8.4-10.2); Carbon Dioxide 27 mmol/L (22-29); Chloride 104 mmol/L (96-108); Cholesterol 210 mg/dL (<200); Estimated Glomerular Filt Rate > 60; Glucose Fasting 84 mg/dL (60-99); HDL Cholesterol 50 mg/dL (>40); LDL Cholesterol Calculated 142 mg/dL (<100); Potassium 3.8 mmol/L (3.3-5.1); Sodium 138 mmol/L (135-145); Total Protein 7.4 g/dL (6.5-8.0); Triglycerides 92 mg/dL (<150)
[2023-11-12 11:59] LABS: TSH reflex Free T4 1.35 uIU/mL (0.32-4.0); Vitamin D 25-OH Total 64.1 ng/mL (>30)
== END 2023-11-12 08:30 | disposition home or self-care (01) ==
LOC: HO.HMGCLDS 08:29
PROVIDERS: PCP Physician Assistant; Visit Provider Physician Assistant
DX: Z13.29 Encounter for screening for other suspected endocrine disorder (principal); E55.9 Vitamin D deficiency, unspecified; E78.9 Disorder of lipoprotein metabolism, unspecified
CPT/HCPCS: 36415; 80053; 80061; 82306; 84443; 85027

== ENCOUNTER 2023-11-16 07:29 | Outpatient (REF) | payer OTHER, SELFPAY | END 2023-11-16 07:30 | disposition home or self-care (01) | LOC: HO.MAMMO 07:29 | PROVIDERS: Visit Provider Physician Assistant | DX: Z12.31 Encounter for screening mammogram for malignant neoplasm of breast (principal) | CPT/HCPCS: 77063; 77067 ==

== ENCOUNTER → 2023-11-16 07:30 | Outpatient (BNV) | payer OTHER, SELFPAY | PROVIDERS: Visit Provider Radiology Diagnostic Radiology | DX: Z12.31 Encounter for screening mammogram for malignant neoplasm of breast (principal) | CPT/HCPCS: 77063; 77067 ==

== ENCOUNTER 2023-11-16 07:51 | Outpatient (AMB) | payer OTHER, SELFPAY ==
[2023-11-16 08:35] VITALS: BP 92/62; PULSE 55; O2SAT 98; BMI 21.5
--- NOTE | 2023-11-16 08:35 | MHC.PC.OV ---
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 Pmhx of cerical spine and lumbar spine back pain. Her spine pain has actually gotten better since she has been more physically active Has borderline high cholesterol to which she is controlling with diet. .. Colonoscopy- 2019 - repeat 5 years. due to family history of colon cancer. .. Mammo:? Up-to-date with mammogram in 2022 .. 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 Vaccine; up-to-date with COVID vaccine, up-to-date with tetanus, UTD with Flu vaccine Laboratory Tests 10/04/22 11/12/23 11/12/23 08:10 08:40 08:40 Hgb 12.5 Creatinine 0.81 Cholesterol 199 210 H LDL Cholesterol, C alc 127 PFSH Medical History (Updated 11/17/23 @ 07:00 by Tom Lawrence PA-C) Retinacular ganglion, volar (VRG) Trigger middle finger of right hand Lumbar spine pain Cervical (neck) region somatic dysfunction No pertinent past medical history Surgical History Hx of dilation and curettage S/P trigger finger release Hx of colonoscopy Family History (Updated 11/16/23 @ 09:09 by Tom Lawrence PA-C) Father Stroke Mother Cancer Colon cancer TIA (transient ischemic attack) Family/Other Bipolar 1 disorder Social History (Updated 11/16/23 @ 09:10 by Tom Lawrence PA-C) Housing: House Are you a primary home care associate to a significant other at home: No Do you presently have visiting nurse or other home services: No Alcohol intake: current Alcohol intake frequency: a few times a month Comment: cramping Patient Tobacco Use Status: Never used Tobacco e-Cigarette/Vaping Use: Never Used Second Hand Smoke Exposure: No Current occupational status: employed 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 1. Little interest or pleasure in doing things: not at all 2. Feeling down, depressed, or hopeless: not at all 3. Trouble falling or staying asleep, or sleeping too much: not at all 4. Feeling tired or having little energy: not at all 5. Poor appetite or overeating: not at all 6. Feeling bad about yourself - or that you are a failure or have let yourself or your family down: not at all 7. Trouble concentrating on things, such as reading the newspaper or watching television: not at all 8. Moving or speaking so slowly that other people could have noticed. Or the opposite - being so fidgety or restless that you have been moving around a lot more than usual: not at all 9. Thoughts that you would be better off or of hurting yourself in some way: not at all Total score: 0 Depression Screening Interpretation: Negative Depression Screening Done: Yes 15764 - PHQ-9 Billing: Yes Source: Developed by Drs. Vipul Segovia, Geri Oliver, Stephane Jenkins and colleagues, with an educational tirso from [employer]. Thrive Questionnaire Date Thrive assessed: 11/16/23 I am a: Patient What is your living situation today?: I have a steady place to live Within the past 12 months, did the food you bought not last and you didn't have the money to get more?: Never true Within the past 12 months, did you worry whether your food would run out before you got money to buy more?: Never true Do you have trouble paying for medicines?: No Do you have trouble getting transportation to medical appointments?: No Do you have trouble paying your heating and electricity bill?: No Do you have trouble taking care of your child, family member or friend?: No Do you have trouble with day-to-day activities such as bathing, preparing meals, shopping, managing finances, etc.?: No Are you currently unemployed and looking for a job?: No Are you interested in more education?: No Please select the resources that you would like help with: None AUDIT C Alcohol Use Questionnaire (AUDIT-C) 1. How often do you have a drink containing alcohol?: Monthly or less 2. How many drinks containing alcohol do you have on a typical day when you are drinking?: 1 or 2 3. How often do you have six or more drinks on one occasion?: Never Total Score: 1 KANG-7 AMB Questionnaire KANG-7 Date KANG - 7 assessed: 11/16/23 Feeling nervous, anxious, or on edge: 0 = Not at all Not being able to stop or control worryin = Not at all Worrying too much about different things: 0 = Not at all Trouble relaxin = Not at all Being so restless that it is hard to sit still: 0 = Not at all Becoming easily annoyed or irritable: 0 = Not at all Feeling afraid as if something awful might happen: 0 = Not at all Total KANG-7 score (0-4 normal; 5-9 mild; 10-14 moderate; 15-21 severe): 0 Source: Developed by Drs. Vipul Segovia, Geri Oliver, Stephane Jenkins and colleagues, with an educational tirso from [employer]. KANG-7 Assessment Billing KANG-7 Assessment Tool: KANG-7 Assessment 63159 Review of Systems Const Denies body aches, Denies chills, Denies excessive sweating, Denies fatigue, Denies fever(s) and Denies headache(s) Eyes Denies blurry vision ENT Denies dysphagia, Denies vertigo, Denies dizziness, Denies headache(s), Denies hearing loss and Denies tinnitus Card Denies chest pain, Denies chest pain with activity, Denies syncope, Denies irregular heart rhythm and Denies dyspnea Resp Denies chest congestion, Denies cough, Denies hemoptysis, Denies dyspnea and Denies wheezing GI Denies abdominal pain, Denies melena, Denies hematochezia, Denies coffee ground emesis, Denies dysphagia, Denies diarrhea, Denies nausea and Denies vomiting Denies urinary frequency, Denies dysuria, Denies urinary hesitancy and Denies urinary urgency Musc Denies arthralgias, Denies limited range of motion, Denies muscle cramps and Denies muscle weakness Skin/Breast Denies rash and Denies skin ulcer Neuro Denies Abnormal speech present, Denies confusion, Denies vertigo, Denies dizziness, Denies syncope, Denies headache(s), Denies memory loss and Denies seizure-like activity Psych Denies anxiety, Denies confusion, Denies depression, Denies memory loss, Denies panic attacks and Denies paranoia Endo Denies excessive sweating, Denies fatigue, Denies flushing, Denies polydipsia and Denies polyuria Aller/Immun Denies wheezing Physical exam (Primary Care) Vital Signs: Last Vital Signs Pulse 55 11/16/23 08:35 BP 92/62 11/16/23 08:35 Pulse Ox 98 11/16/23 08:35 Oxygen Delivery Method Room Air 11/16/23 08:35 BMI result Body Mass Index 21.5 Tobacco/Smoking Status: Tobacco use Status Tobacco use date assessed 11/16/23 11/16/23 08:37 Patient Tobacco Use Status Never used Tobacco 11/16/23 09:10 e-Cigarette/Vaping Use Never Used 11/16/23 09:10 PHQ-9: PHQ-9 Score PHQ-9: Total score 0 11/16/23 09:03 Depression Screening Interpretation: Negative Thrive Assessment: Date of Thrive Assessment Date Thrive assessed 11/16/23 11/16/23 08:37 Const General: cooperative, comfortable, no acute distress, alert and awake; No confusion Orientation/consciousness: oriented to person, oriented to place, patient oriented x3 and No confusion HENMT Head: Yes normocephalic Ears: external ears normal and TM's normal bilaterally Face and sinus: No sinus tenderness Mouth: Normal oral and palatal mucosa present and tongue normal Teeth and gingiva: dentition normal and gingiva normal Throat: Yes posterior oropharynx normal, Yes tonsils normal and Yes uvula midline Eyes Conjunctivae: conjunctivae normal Sclerae: sclerae normal Pupils: Equal, round and reactive pupils present EOM: EOMs intact bilaterally Direct Ophthalmoscopy: No no photophobia Neck Neck: Yes no lymphadenopathy, No tender and Yes no JVD Thyroid: Thyroid normal Carotids: no bruits Chest Chest palpation & inspection: no tenderness Resp Effort & Inspection: normal respiratory effort, no audible wheezes, not labored and no stridor Auscultation: no crackles, no rales, no rhonchi and no wheezes Cardio Jugular venous distension: no JVD Rate: regular rate, not bradycardic and not tachycardic Rhythm: regular rhythm Bruits: no carotid bruits Peripheral pulses: Peripheral pulses 2+ throughout GI Inspection: Yes normal to inspection, No abdominal wall ecchymosis and No visible herniation Palpation (GI): Soft to palpation, nontender, no guarding, not rigid and No hepatosplenomegaly present Auscultation: normoactive bowel sounds General: Yes no CVA tenderness Back/Spine/Pelvis Back: no CVA tenderness and No back tenderness Cervical Spine: cervical ROM normal Thoracic/Lumbar Spine: thoracic and lumbar spine normal to inspection, straight leg raise negative bilaterally, No thoraco-lumbar ROM limited and No lumbar spinal tenderness Skin Lesions: no lesions Rashes: no rashes Wounds: no wounds Neuro General: oriented to person, oriented to place, patient oriented x3, CN's II-XI intact bilaterally and No confusion Cranial nerves: Yes Equal, round and reactive pupils present and Yes Normal accommodation reflex present Cognition (Neuro): normal cognition Speech: No Abnormal speech present Gait exam (Neuro): Normal gait present Motor exam (neuro): 5/5 motor strength present throughout Extrem Right upper extremity: full ROM; no cyanosis Left upper extremity: full ROM; no cyanosis Right lower extremity: no edema Left lower extremity: no edema Psych Appearance: grossly normal Mental Status: mental status grossly normal Affect: normal affect Attitude: cooperative Thought process: Normal thought process present Assessment and Plan Assessment & Plan (1) Annual physical exam: Code(s): Z00.00 - Encounter for general adult medical examination without abnormal findings (2) Vitamin D deficiency: Code(s): E55.9 - Vitamin D deficiency, unspecified Plan: Patient does take supplemental vitamin-D, will check vitamin-D to assure acceptable above 30. (3) Borderline high cholesterol: Code(s): E78.9 - Disorder of lipoprotein metabolism, unspecified Plan: Patient's total cholesterol remains in borderline high region. LDL and HDL acceptable. Will continue to be physically active and in good eating habits. Orders: Orders Vitamin D 25-OH Total 11/16/23 E55.9 - Vitamin D deficiency, unspecified Comprehensive [place]. Panel Fast 11/16/23 Z13.1 - Encounter for screening for diabetes mellitus Lipid Panel 11/16/23 E78.9 - Disorder of lipoprotein metabolism, unspecified Coding Level of Care Code Est Pt Prev Care 40-64y(53177) Diagnoses Annual physical exam Z00.00 Vitamin D deficiency E55.9 Borderline high cholesterol E78.9 Additional Codes KANG-7 Assessment Billing - KANG-7 Assessment Tool: KANG-7 Assessment [id number] ([id number])
== END 2023-11-16 10:08 | disposition home or self-care (01) ==
PROVIDERS: Visit Provider Physician Assistant
DX: Z00.00 Encounter for general adult medical examination without abnormal findings (principal); E55.9 Vitamin D deficiency, unspecified; E78.9 Disorder of lipoprotein metabolism, unspecified
CPT/HCPCS: 99396

== ENCOUNTER 2024-07-02 08:39 | Outpatient (AMB) | payer OTHER, SELFPAY ==
--- NOTE | 2024-07-02 08:42 | MHC.OFFVIS ---
Intake Visit Reasons: 5 year recall Intake Note: This patient presents for 5 year recall colonoscopy. Pt c/o; reports no complaints at this time. 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 Her mother had colon cancer at age of 60. She undergoes colonoscopy every 5 years for screening therefore. She denies any GI complaints. She says she feels well overall. Her last colonoscopy in 2019 was unremarkable. [facility] Medical History (Updated 07/02/24 @ 08:53 by Yan Fernandez MD) Family history of colon cancer Retinacular ganglion, volar (VRG) Trigger middle finger of right hand Lumbar spine pain Cervical (neck) region somatic dysfunction No pertinent past medical history Surgical History Hx of dilation and curettage S/P trigger finger release Hx of colonoscopy Family History Father Stroke Mother Cancer Colon cancer TIA (transient ischemic attack) Family/Other Bipolar 1 disorder Social History Housing: House Are you a primary home health care respiratory therapist to a significant other at home: No Do you presently have visiting nurse or other home services: No Alcohol intake: current Alcohol intake frequency: a few times a month Comment: cramping Patient Tobacco Use Status: Never used Tobacco e-Cigarette/Vaping Use: Never Used Second Hand Smoke Exposure: No Current occupational status: employed 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[employer] [place] Cognitive needs: No Hearing needs: No Vision needs: No Female Reproductive History Menstrual Age of Menarche: 12 Review of Systems Const Denies chills and Denies fever(s) Card Denies chest pain, Denies dyspnea and Denies dyspnea on exertion Resp Denies cough, Denies dyspnea and Denies dyspnea on exertion GI Denies hematochezia and Denies change in bowel habits Denies hematuria Musc Denies back pain and Denies limited range of motion Neuro Denies focal weakness and Denies convulsions Psych Denies depression and Denies mood swings Physical Exam Const General: comfortable and no acute distress Orientation/consciousness: patient oriented x3 Neck Neck: Yes no lymphadenopathy Resp Auscultation: clear to auscultation bilaterally Cardio Rhythm: regular rhythm GI Palpation (GI): Soft to palpation, nontender and no guarding Neuro General: patient oriented x3 Assessment & Plan Assessment & Plan (1) Family history of colon cancer: Code(s): Z80.0 - Family history of malignant neoplasm of digestive organs Category: Medical Plan: I reviewed with her the technique of colonoscopy. I explained the risks including but not limited to bleeding and perforation, as well as the benefits and alternatives. She understands and agrees to proceed. Coding Level of Care Code New Pt Level 3 (62318) Diagnoses Family history of colon cancer Z80.0
== END 2024-07-02 08:54 | disposition home or self-care (01) ==
PROVIDERS: Visit Provider Surgery
DX: Z80.0 Family history of malignant neoplasm of digestive organs (principal)
CPT/HCPCS: 99203

== ENCOUNTER → 2024-07-02 08:39 | Outpatient (BNVA) | payer OTHER, SELFPAY | PROVIDERS: Visit Provider Surgery ==

== ENCOUNTER 2024-08-10 07:49 | Day surgery (SDC) | payer OTHER, SELFPAY ==
--- NOTE | 2024-08-08 11:40 | HO.ANESPROP2 ---
Documented by User: Anabella Denis NP 08/08/24 11:40 HPI - Anesthesia Eval Consult details Narrative: 53yo F for Colonoscopy with Possible Polypectomy PMFSH Active Problems Active Problems: All Active Problems Family history of colon cancer (Acute) Vitamin D deficiency (Acute) Annual physical exam (Acute) Borderline high cholesterol (Acute) Screening for diabetes mellitus (DM) (Acute) Perimenopausal (Acute) Well woman exam (Acute) Postmenopausal bleeding (Acute) Myoma (Acute) Past Medical History Medical History Family history of colon cancer Retinacular ganglion, volar (VRG) Trigger middle finger of right hand Lumbar spine pain Cervical (neck) region somatic dysfunction No pertinent past medical history Family History Family History Father Stroke Mother Cancer Colon cancer TIA (transient ischemic attack) Family/Other Bipolar 1 disorder Family history of problems with anesthesia: No Surgical History Surgical History Hx of dilation and curettage S/P trigger finger release Hx of colonoscopy History of Problems with Anesthesia: No Social History Social History Housing: House Are you a primary resident care spec to a significant other at home: No Do you presently have visiting nurse or other home services: No Alcohol intake: current Alcohol intake frequency: a few times a month Comment: cramping Patient Tobacco Use Status: Never used Tobacco e-Cigarette/Vaping Use: Never Used Second Hand Smoke Exposure: No Advance Directives: No Advance Directives Information Provided: Yes Current occupational status: employed 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[place] 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 needs: No Hearing needs: No Vision needs: No Meds Allergies Allergy/AdvReac Type Severity Reaction Status Date / Time No Known Allergies Allergy Verified 08/10/24 07:58 Assessment and Plan Assessment Anesthesia Assessment: Chart Reviewed Final Anesthetic Review Family History of Problems with Anesthesia: No History of Problems with Anesthesia: No Documented by User: Alessandra Scanlon MD 08/10/24 08:23 PMFSH Past Medical History Medical History Family history of colon cancer Retinacular ganglion, volar (VRG) Trigger middle finger of right hand Lumbar spine pain Cervical (neck) region somatic dysfunction No pertinent past medical history Family History Family History Father Stroke Mother Cancer Colon cancer TIA (transient ischemic attack) Family/Other Bipolar 1 disorder Surgical History Surgical History Hx of dilation and curettage S/P trigger finger release Hx of colonoscopy Social History Social History Housing: House Are you a primary resident care spec to a significant other at home: No Do you presently have visiting nurse or other home services: No Alcohol intake: current Alcohol intake frequency: a few times a month Comment: cramping Patient Tobacco Use Status: Never used Tobacco e-Cigarette/Vaping Use: Never Used Second Hand Smoke Exposure: No Advance Directives: No Advance Directives Information Provided: Yes Current occupational status: employed 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[place] 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
[2024-08-08 11:46] VITALS: BMI 21.5
[2024-08-10 08:01] VITALS: BMI 21.4
[2024-08-10 08:25] VITALS: BP 127/68; PULSE 52; RESP 12; TEMP 36.2; O2SAT 99
--- NOTE | 2024-08-10 08:34 | MHC.SHP ---
Pre-Procedural Eval Section A - 24 Hr Update-Section A only Date of Service: 08/10/24 Section B - Complete if H&P > 30 days Chief Complaint: Family history of malignant neoplasm of digestive Details of Present Illness: Has a family history of colon cancer, she therefore undergoes colonoscopy every 5 years Relevant Family History (Specify if Yes): Yes Relevant Social History: None Present Medications: see Short Stay Collaborative assessment Medical History: Significant History (Borderline hyperlipidemia) Allergies: Allergies Allergy/AdvReac Type Severity Reaction Status Date / Time No Known Allergies Allergy Verified 08/10/24 07:58 Review of Systems Sugical H&P ROS: Negative: Constitution, Cardiovascular, Psychiatric and Gastrointestinal Exam Surgical H&P Exam: Normal: Heart, Normal: Lungs and Normal: Abdomen Plan Diagnosis/Plan: Unchanged I have reviewed the history and physical and performed a pertinent physical examination on my patient. No changes have occurred unless specified. Time Spent With Patient Time: Total time managing care of this patient today ____ minutes.
--- NOTE | 2024-08-10 08:58 | HO.OPN-COLON ---
Colonoscopy Operative Note Operative Note Date of Service: 08/10/24 Narrative: Preop diagnosis: Family history of colon cancer Postop diagnosis: External hemorrhoids otherwise normal colonoscopy findings Procedure: Colonoscopy Surgeon: Yan Fernandez MD The patient is a 53 year old female whose mother had a history of colon cancer at age of 60. She is here for screening colonoscopy. She understands the technique of the procedure as well as the risks, benefits, and alternatives. The patient was brought to the operating room and placed in left lateral decubitus position under monitored anesthesia care. A surgical time-out was done. A full digital rectal exam was done and this did not reveal any significant anal lesions. The tip of the Olympus colonoscope was gently introduced through the anal orifice advanced with insufflation all the way to the cecum. The cecum was intubated. The cecum was identified by visualization of the ileocecal valve as well as the appendiceal orifice. The cecal mucosa was unremarkable. The scope was gradually withdrawn with careful examination of the entire colonic mucosa being done with scope withdrawal. The patient had good bowel prep so it was unlikely that any lesion may have been missed. The rectum was reached and there were no lesions seen. The anal canal was unremarkable. She did have prominent external hemorrhoids. The scope was then withdrawn completely with desufflation The patient tolerated procedure well. There were no immediate complications. Her next colonoscopy may be in the next 5 years.
[2024-08-10 09:02] VITALS: BP 82/62; PULSE 70; RESP 16; TEMP 36.3; O2SAT 95
[2024-08-10 09:22] VITALS: BP 106/77; PULSE 67; RESP 20; TEMP 36.8; O2SAT 96
[2024-08-10 09:32] VITALS: BP 114/72; PULSE 61; RESP 20
== END 2024-08-10 09:30 | disposition home or self-care (01) ==
PROVIDERS: PCP Physician Assistant; Visit Provider Surgery
PROC: 0DBE8ZZ Excision of Large Intestine, Via Natural or Artificial Opening Endoscopic (ICD-10-PCS; principal; 2024-08-10 09:00)
DX: Z12.11 Encounter for screening for malignant neoplasm of colon (principal); Z80.0 Family history of malignant neoplasm of digestive organs; K64.4 Residual hemorrhoidal skin tags; M99.01 Segmental and somatic dysfunction of cervical region; M54.50 Low back pain, unspecified; Z98.890 Other specified postprocedural states
CPT/HCPCS: 45378; J1596; J2704

== ENCOUNTER → 2024-08-10 07:49 | Outpatient (BNV) | payer OTHER, SELFPAY | PROVIDERS: PCP Physician Assistant; Visit Provider Surgery | DX: Z12.11 Encounter for screening for malignant neoplasm of colon (principal); K64.9 Unspecified hemorrhoids; Z80.0 Family history of malignant neoplasm of digestive organs | CPT/HCPCS: 45378 ==

== ENCOUNTER 2024-10-31 14:22 | Outpatient (REF) | payer OTHER, SELFPAY ==
[2024-10-31 15:08] LABS: Alanine Aminotransferase 31 U/L (0-31); Albumin Level 4.4 g/dL (3.5-5.0); Alkaline Phosphatase 70 U/L (39-117); Anion Gap 11 (12-20); Aspartate Amino Transferase 34 U/L (5-31); Bilirubin Total 0.6 mg/dL (0.0-1.0); Blood Urea Nitrogen 17 mg/dL (9-16); Calcium 9.7 mg/dL (8.4-10.2); Carbon Dioxide 28 mmol/L (22-29); Chloride 102 mmol/L (96-108); Cholesterol 208 mg/dL (<200); Estimated Glomerular Filt Rate > 60; Glucose Fasting 90 mg/dL (60-99); HDL Cholesterol 44 mg/dL (>40); LDL Cholesterol Calculated 139 mg/dL (<100); Sodium 137 mmol/L (135-145); Total Protein 7.9 g/dL (6.5-8.0); Triglycerides 126 mg/dL (<150)
[2024-10-31 15:24] LABS: Vitamin D 25-OH Total 41.6 ng/mL (>30)
== END 2024-10-31 14:23 | disposition home or self-care (01) ==
LOC: HO.LAB 14:22
PROVIDERS: Visit Provider Physician Assistant
DX: E78.9 Disorder of lipoprotein metabolism, unspecified (principal); E55.9 Vitamin D deficiency, unspecified; Z13.1 Encounter for screening for diabetes mellitus
CPT/HCPCS: 36415; 80053; 80061; 82306

== ENCOUNTER 2024-11-19 11:28 | Outpatient (AMB) | payer OTHER, SELFPAY ==
[2024-11-19 11:31] VITALS: BP 108/56; PULSE 65; O2SAT 97; BMI 21.8
--- NOTE | 2024-11-19 11:31 | MHC.PC.OV ---
Vital Signs 11/19/24 11:31 Height 5 ft 7 in Weight 139 lb 8 oz BMI 21.8 BP 108/56 L Blood Pressure Location Lt brachial Position Sitting Pulse 65 Pulse Source Pulse Oximeter Pulse Oximetry (%) 97 Oxygen Delivery Method Room Air Intake Visit Reasons: Annual physical Intake Note: Patient is here today for a physical. 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 Accompanied by: Self / Same As Patient Allergies No Known Allergies Allergy (Verified 11/19/24 11:37) Medication List - Last Reconciled 11/19/24 by Tom Lawrence PA-C cetirizine 10 mg PO DAILY menthol-zinc oxide 0.44-20.6 % (Calmoseptine) 1 appl topical QID PRN Tobacco use date assessed: 11/19/24 Dental Screening Dental Screen Date: 11/19/24 Did you have a dental visit in the last 12 months?: Yes Did you have a dental problem in the last 6 months where you did not have access to dental care?: No Was dental information given to patient?: Patient has dentist HPI Annual physical HPI Details Patient is a 54-year-old female here today for routine annual physical.? Pmhx of cerical spine and lumbar spine back pain. Her spine pain has actually gotten better since she has been more physically active Has borderline high cholesterol to which she is controlling with diet. Concern--> she reports she is followed by a dentist and has had a mandible body like lesion noted on x-ray that has been followed though has recently gotten bigger. She is concerned about malignant issue here thus will like his CBC with full diff. cervical spine pain-patient reports her cervical spine pain has been more evident as of late. Has had x-rays of her cervical spine in 2019 words that did show degenerative arthritis. She attributes her worsening pain to long periods of standing at work in her posture. She reports physical therapy in the past has helped her. .. Colonoscopy- July of 2024- repeat 5 years due to family history colon cancer. .. Mammo:? Has upcoming appointment for mammogram .. 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[facility] [employer] Vaccine; up-to-date with COVID vaccine, up-to-date with tetanus, UTD with Flu vaccine Laboratory Tests 10/04/22 11/12/23 11/12/23 08:10 08:40 08:40 Hgb 12.5 Creatinine 0.81 Cholesterol 199 210 H LDL Cholesterol, C alc 127 PFSH Medical History (Updated 11/19/24 @ 12:06 by Tom Lawrence PA-C) Lumbar spine pain Cervical (neck) region somatic dysfunction Family history of colon cancer Retinacular ganglion, volar (VRG) Trigger middle finger of right hand No pertinent past medical history Surgical History Hx of dilation and curettage S/P trigger finger release Hx of colonoscopy Family History Father Stroke Mother Cancer Colon cancer TIA (transient ischemic attack) Family/Other Bipolar 1 disorder Social History (Updated 11/19/24 @ 11:42 by Tom Lawrence PA-C) Housing: House Are you a primary home child care provider to a significant other at home: No Do you presently have visiting nurse or other home services: No Alcohol intake: current Alcohol intake frequency: holidays/special occasions only Comment: cramping Patient Tobacco Use Status: Never used Tobacco e-Cigarette/Vaping Use: Never Used Second Hand Smoke Exposure: No service: No Current occupational status: employed 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 1. Little interest or pleasure in doing things: not at all 2. Feeling down, depressed, or hopeless: not at all 3. Trouble falling or staying asleep, or sleeping too much: not at all 4. Feeling tired or having little energy: not at all 5. Poor appetite or overeating: not at all 6. Feeling bad about yourself - or that you are a failure or have let yourself or your family down: not at all 7. Trouble concentrating on things, such as reading the newspaper or watching television: not at all 8. Moving or speaking so slowly that other people could have noticed. Or the opposite - being so fidgety or restless that you have been moving around a lot more than usual: not at all 9. Thoughts that you would be better off or of hurting yourself in some way: not at all Total score: 0 Depression Screening Interpretation: Negative Depression Screening Done: Yes 15216 - PHQ-9 Billing: Yes Source: Developed by Drs. Vipul Segovia, Geri Oliver, Stephane Jenkins and colleagues, with an educational tirso from [employer]. Thrive Questionnaire Date Thrive assessed: 11/19/24 I am a: Patient What is your living situation today?: I have a steady place to live Within the past 12 months, did the food you bought not last and you didn't have the money to get more?: Never true Within the past 12 months, did you worry whether your food would run out before you got money to buy more?: Never true Do you have trouble paying for medicines?: No Do you have trouble getting transportation to medical appointments?: No Do you have trouble paying your heating and electricity bill?: No Do you have trouble taking care of your child, family member or friend?: No Do you have trouble with day-to-day activities such as bathing, preparing meals, shopping, managing finances, etc.?: No Are you currently unemployed and looking for a job?: No Are you interested in more education?: No Please select the resources that you would like help with: None Currently or been in a relationship where the following occur: No concerns reported THRIVE Score: 0 AUDIT C Alcohol Use Questionnaire (AUDIT-C) 1. How often do you have a drink containing alcohol?: 2-4 times a month 2. How many drinks containing alcohol do you have on a typical day when you are drinking?: 1 or 2 3. How often do you have six or more drinks on one occasion?: Never Total Score: 2 KANG-7 AMB Questionnaire KANG-7 Date KANG - 7 assessed: 11/19/24 Feeling nervous, anxious, or on edge: 0 = Not at all Not being able to stop or control worryin = Not at all Worrying too much about different things: 0 = Not at all Trouble relaxin = Not at all Being so restless that it is hard to sit still: 0 = Not at all Becoming easily annoyed or irritable: 0 = Not at all Feeling afraid as if something awful might happen: 0 = Not at all Total KANG-7 score (0-4 normal; 5-9 mild; 10-14 moderate; 15-21 severe): 0 Source: Developed by Drs. Vipul Segovia, Geri Oliver, Stephane Jenkins and colleagues, with an educational tirso from [employer]. KANG-7 Assessment Billing KANG-7 Assessment Tool: KANG-7 Assessment 31517 Review of Systems Const Denies body aches, Denies chills, Denies excessive sweating, Denies fatigue, Denies fever(s) and Denies headache(s) Eyes Denies blurry vision ENT Denies dysphagia, Denies vertigo, Denies dizziness, Denies headache(s), Denies hearing loss, Reports neck pain and Denies tinnitus Card Denies chest pain, Denies chest pain with activity, Denies syncope, Denies irregular heart rhythm and Denies dyspnea Resp Denies chest congestion, Denies cough, Denies hemoptysis, Denies dyspnea and Denies wheezing GI Denies abdominal pain, Denies melena, Denies hematochezia, Denies coffee ground emesis, Denies dysphagia, Denies diarrhea, Denies nausea and Denies vomiting Denies urinary frequency, Denies dysuria, Denies urinary hesitancy and Denies urinary urgency Musc Reports back pain, Denies arthralgias, Denies limited range of motion, Denies muscle cramps, Denies muscle weakness and Reports neck pain Skin/Breast Denies rash and Denies skin ulcer Neuro Denies Abnormal speech present, Denies confusion, Denies vertigo, Denies dizziness, Denies syncope, Denies headache(s), Denies memory loss and Denies seizure-like activity Psych Denies anxiety, Denies confusion, Denies depression, Denies memory loss, Denies panic attacks and Denies paranoia Endo Denies excessive sweating, Denies fatigue, Denies flushing, Denies polydipsia and Denies polyuria Aller/Immun Denies wheezing Physical exam (Primary Care) Vital Signs: Last Vital Signs Pulse 65 11/19/24 11:31 BP 108/56 L 11/19/24 11:31 Pulse Ox 97 11/19/24 11:31 Oxygen Delivery Method Room Air 11/19/24 11:31 BMI result Body Mass Index 21.8 Tobacco/Smoking Status: Tobacco use Status Tobacco use date assessed 11/19/24 11/19/24 11:36 Patient Tobacco Use Status Never used Tobacco 11/19/24 11:42 e-Cigarette/Vaping Use Never Used 11/19/24 11:42 PHQ-9: PHQ-9 Score PHQ-9: Total score 0 11/19/24 11:38 Depression Screening Interpretation: Negative Thrive Assessment: Date of Thrive Assessment Date Thrive assessed 11/19/24 11/19/24 11:36 Currently or been in a relationship where the following occur: No concerns reported Const General: cooperative, comfortable, no acute distress, alert and awake; No confusion Orientation/consciousness: oriented to person, oriented to place, patient oriented x3 and No confusion HENMT Head: Yes normocephalic Ears: external ears normal and TM's normal bilaterally Face and sinus: No sinus tenderness Mouth: Normal oral and palatal mucosa present and tongue normal Teeth and gingiva: dentition normal and gingiva normal Throat: Yes posterior oropharynx normal, Yes tonsils normal and Yes uvula midline Eyes Conjunctivae: conjunctivae normal Sclerae: sclerae normal Pupils: Equal, round and reactive pupils present EOM: EOMs intact bilaterally Direct Ophthalmoscopy: No no photophobia Neck Neck: Yes no lymphadenopathy, No tender and Yes no JVD Thyroid: Thyroid normal Carotids: no bruits Chest Chest palpation & inspection: no tenderness Resp Effort & Inspection: normal respiratory effort, no audible wheezes, not labored and no stridor Auscultation: no crackles, no rales, no rhonchi and no wheezes Cardio Jugular venous distension: no JVD Rate: regular rate, not bradycardic and not tachycardic Rhythm: regular rhythm Bruits: no carotid bruits Peripheral pulses: Peripheral pulses 2+ throughout GI Inspection: Yes normal to inspection, No abdominal wall ecchymosis and No visible herniation Palpation (GI): Soft to palpation, nontender, no guarding, not rigid and No hepatosplenomegaly present Auscultation: normoactive bowel sounds General: Yes no CVA tenderness Back/Spine/Pelvis Back: no CVA tenderness and No back tenderness Cervical Spine: cervical ROM normal Thoracic/Lumbar Spine: thoracic and lumbar spine normal to inspection, straight leg raise negative bilaterally, No thoraco-lumbar ROM limited and No lumbar spinal tenderness Skin Lesions: no lesions Rashes: no rashes Wounds: no wounds Neuro General: oriented to person, oriented to place, patient oriented x3, CN's II-XI intact bilaterally and No confusion Cranial nerves: Yes Equal, round and reactive pupils present and Yes Normal accommodation reflex present Cognition (Neuro): normal cognition Speech: No Abnormal speech present Gait exam (Neuro): Normal gait present Motor exam (neuro): 5/5 motor strength present throughout Extrem Right upper extremity: full ROM; no cyanosis Left upper extremity: full ROM; no cyanosis Right lower extremity: no edema Left lower extremity: no edema Psych Appearance: grossly normal Mental Status: mental status grossly normal Affect: normal affect Attitude: cooperative Thought process: Normal thought process present Coding Level of Care Code Est Pt Prev Care 40-64y(12748) Diagnoses Annual physical exam Z00.00 Cervical (neck) region somatic dysfunction M99.01 Bone lesion M89.9 Family history of Marycruz thyroiditis Z83.49 Additional Codes KANG-7 Assessment Billing - KANG-7 Assessment Tool: KANG-7 Assessment 69040 ([id number]) PHQ-9 - 63607 - PHQ-9 Billing: Yes ([id number]) Assessment & Plan Assessment & Plan (1) Annual physical exam: Code(s): Z00.00 - Encounter for general adult medical examination without abnormal findings Category: Medical Plan: As per HPI (2) Cervical (neck) region somatic dysfunction: Code(s): M99.01 - Segmental and somatic dysfunction of cervical region Category: Medical Plan: As per HPI patient reports having worsening neck pain, crepitus and stiffness to which she attributes to her long periods of standing and posture at work. She will likely benefit from physical therapy and/or chiropractics. Will get a repeat x-ray to start workup. (3) Bone lesion: Code(s): M89.9 - Disorder of bone, unspecified Category: Medical Plan: As per HPI she is noted to have some kind of abnormal bone lesion over mandible. She has followed up with her dentist he will be getting workup. Will consider MRI of mandible (4) Family history of Marycruz thyroiditis: Code(s): Z83.49 - Family history of other endocrine, nutritional and metabolic diseases Category: Medical Plan: As per HPI Orders: Orders XR thoracic spine 3V Today M54.6 - Pain in thoracic spine TSH reflex Free T4 Today Z83.49 - Family history of other endocrine, nutritional and metabolic diseases Lipid Panel 11 Months E78.9 - Disorder of lipoprotein metabolism, unspecified Complete Blood Count no Diff 11 Months N95.0 - Postmenopausal bleeding TSH reflex Free T4 11 Months Z83.49 - Family history of other endocrine, nutritional and metabolic diseases XR cervical spine 3V Today M99.01 - Segmental and somatic dysfunction of cervical region PT Evaluation and Treatment Today M99.01 - Segmental and somatic dysfunction of cervical region Complete Blood Count Auto Diff Today Z80.0 - Family history of malignant neoplasm of digestive organs XR lumbar spine 4V min Today M54.5 - Low back pain Comprehensive [place]. Panel Fast 11 Months Z13.1 - Encounter for screening for diabetes mellitus
== END 2024-11-19 12:07 | disposition home or self-care (01) ==
PROVIDERS: PCP Physician Assistant; Visit Provider Physician Assistant
DX: Z00.00 Encounter for general adult medical examination without abnormal findings (principal); M99.01 Segmental and somatic dysfunction of cervical region; M89.9 Disorder of bone, unspecified; Z83.49 Family history of other endocrine, nutritional and metabolic diseases

== ENCOUNTER 2024-11-19 15:03 | Outpatient (REF) | payer OTHER, SELFPAY ==
--- NOTE | ~2024-11-19 | MM_ITS ---
EXAMINATION: MM SCREENING DIGITAL BREAST TOMOSYNTHESIS, BILATERAL CLINICAL INFORMATION: Screening. Asymptomatic. COMPARISON: Mammography: Comparison is made with available priors TECHNIQUE: Digital breast mammography with tomosynthesis is performed in both the craniocaudal and mediolateral oblique views along with computer-aided detection (CAD). FINDINGS: The breasts are heterogeneously dense, which may obscure small masses (ACR BI-RADS breast composition Category c). There are no significant masses, abnormal calcifications, or other abnormalities. MM/MM tomosynthesis screening BI IMPRESSION: No mammographic evidence of malignancy. ASSESSMENT: BI-RADS BI-RADS 1 - Negative RECOMMENDATION: Routine annual mammography screening. 1 year F/U This examination should not preclude the clinical evaluation of a suspicious palpable abnormality. This patient's information was entered into a reminder system with a target due date for their next mammogram. Electronically signed by: Scarlet Moura DO 12/01/2024 04:09 PM [facility]
== END 2024-11-19 15:04 | disposition home or self-care (01) ==
LOC: HO.MAMMO 15:03
PROVIDERS: PCP Physician Assistant; Visit Provider Physician Assistant
DX: Z00.00 Encounter for general adult medical examination without abnormal findings (principal); M99.01 Segmental and somatic dysfunction of cervical region; M89.9 Disorder of bone, unspecified; Z83.49 Family history of other endocrine, nutritional and metabolic diseases; Z12.31 Encounter for screening mammogram for malignant neoplasm of breast
CPT/HCPCS: 77063; 77067; 96127

== ENCOUNTER → 2024-11-19 15:30 | Outpatient (BNV) | payer OTHER, SELFPAY | PROVIDERS: PCP Physician Assistant; Visit Provider Internal Medicine | DX: Z12.31 Encounter for screening mammogram for malignant neoplasm of breast (principal) | CPT/HCPCS: 77063; 77067 ==

== ENCOUNTER 2024-11-20 14:04 | Outpatient (REF) | payer OTHER, SELFPAY ==
--- NOTE | ~2024-11-20 | XR_ITS ---
CLINICAL HISTORY: M54.5 - Low back pain 5 views lumbar spine Comparison: CR - XR LUMBAR SPINE 2-3V - 06/23/21 16:29 EDT Findings: The prior reports are not available for review. Normal vertebral body alignment. No acute fractures or dislocation. No significant degenerative change. IMPRESSION: No acute findings. This document has been electronically signed by: Juan Carter MD on 11/20/2024 15:05:23
--- NOTE | ~2024-11-20 | XR_ITS ---
CLINICAL HISTORY: M54.6 - Pain in thoracic spine 3 views thoracic spine Comparison: None Findings: Mild levoscoliosis. No acute fractures or dislocation. Limited evaluation of the upper thoracic spine on the lateral view due to the overlapping structures. No significant degenerative change. IMPRESSION: No acute findings. This document has been electronically signed by: Juan Carter MD on 11/20/2024 15:04:13
--- NOTE | ~2024-11-20 | XR_ITS ---
CLINICAL HISTORY: M99.01 - Segmental and somatic dysfunction of cervical region 3 views cervical spine Comparison: CR - XR CERVICAL SPINE 3V - 06/23/21 16:23 EDT Findings: The prior report is not available for review. Unchanged grade 1 anterolisthesis of C5 on C6. No acute fractures or dislocation. Prevertebral soft tissues within normal limits. IMPRESSION: No acute findings. Stable grade 1 anterolisthesis of C5 on C6. This document has been electronically signed by: Juan Carter MD on 11/20/2024 15:08:31
[2024-11-20 14:37] LABS: MANUAL DIFF FLAG NO
[2024-11-20 15:24] LABS: Basophils Percent Auto 0.2 % (0-2); Eosinophils Absolute Auto 0.2 X10*3/uL (0.0-0.4); Eosinophils Percent Auto 2.1 % (0-4); Hematocrit 40.3 % (37.0-47.0); Hemoglobin 13.9 g/dl (12.0-16.0); Imm Gran Abs Auto 0.03 X10*3/uL (0.00-0.03); Imm Gran Pct Auto 0.3 % (0.0-0.4); Lymphocytes Absolute Auto 3.1 X10*3/uL (1.2-4.9); Lymphocytes Percent Auto 31.4 % (20-40); Mean Corpuscular HGB Conc 34.5 g/dl (31.0-35.0); Mean Corpuscular Hemoglobin 30.8 pg (27.0-33.0); Mean Corpuscular Volume 89.4 fL (80.0-98.0); Mean Platelet Volume 12.4 fL (9.4-12.3); Monocytes Absolute Auto 0.6 X10*3/uL (0.1-1.2); Monocytes Percent Auto 5.6 % (2-11); Neutrophils Absolute Auto 5.9 x10*3/uL (2.0-8.3); Neutrophils Percent Auto 60.4 % (45-73); Platelet Count 242 X10*3/uL (160-400); Red Blood Count 4.51 X10*6/uL (4.20-5.50); Red Cell Distribution Width 12.5 % (11.0-16.0); White Blood Count 9.8 X10*3/uL (4.8-10.8)
[2024-11-20 19:37] LABS: TSH reflex Free T4 1.26 uIU/mL (0.32-4.0)
== END 2024-11-20 14:05 | disposition home or self-care (01) ==
LOC: HO.XRAY 14:04
PROVIDERS: PCP Physician Assistant; Visit Provider Physician Assistant
DX: M99.01 Segmental and somatic dysfunction of cervical region (principal); M54.59 Other low back pain; M54.6 Pain in thoracic spine; Z83.49 Family history of other endocrine, nutritional and metabolic diseases; Z80.0 Family history of malignant neoplasm of digestive organs
CPT/HCPCS: 36415; 72040; 72072; 72110; 84443; 85025

== ENCOUNTER → 2024-11-20 14:07 | Outpatient (BNV) | payer OTHER, SELFPAY | PROVIDERS: PCP Physician Assistant; Visit Provider Nuclear Medicine | DX: M54.6 Pain in thoracic spine (principal); M99.01 Segmental and somatic dysfunction of cervical region; M54.50 Low back pain, unspecified | CPT/HCPCS: 72040; 72072; 72110 ==

== ENCOUNTER 2025-02-14 11:22 | Outpatient (REF) | payer OTHER, SELFPAY ==
[2025-02-14 17:30] LABS: CT PCR NOT DETECTED (Not Detect.); NG PCR NOT DETECTED (Not Detect.)
[2025-02-19 14:52] LABS: HPV High Risk Negative (Negative)
[2025-02-19 14:53] LABS: HPV Genotype 16 Negative (Negative); HPV Genotype 18 Negative (Negative)
== END 2025-02-14 11:23 | disposition home or self-care (01) ==
LOC: HO.LNP 11:22
PROVIDERS: PCP Physician Assistant; Visit Provider Obstetrics & Gynecology
DX: Z01.419 Encounter for gynecological examination (general) (routine) without abnormal findings (principal); N93.0 Postcoital and contact bleeding
CPT/HCPCS: 87491; 87591; 87626; 88175

== ENCOUNTER 2025-02-14 11:22 | Outpatient (AMB) | payer OTHER, SELFPAY ==
[2025-02-14 11:25] VITALS: BP 106/60; BMI 21.6
--- NOTE | 2025-02-14 11:25 | A.OFFVIS_ITS ---
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 Had to episodes of vaginal bleeding post intercourse last few weeks Last Pap/HPV was negative in 11/10 Last Mammogram was BI-RADS 1 in 11/13 Last Colonoscopy was done in 08/14, the recommendation was to repeat in 5 years [facility] Medical History Lumbar spine pain Cervical (neck) region somatic dysfunction Family history of colon cancer Retinacular ganglion, volar (VRG) Trigger middle finger of right hand No pertinent past medical history Surgical History Hx of dilation and curettage S/P trigger finger release Hx of colonoscopy Family History Father Stroke Mother Cancer Colon cancer TIA (transient ischemic attack) Family/Other Bipolar 1 disorder Social History Housing: House Are you a primary customer care professional to a significant other at home: No Do you presently have visiting nurse or other home services: No Alcohol intake: current Alcohol intake frequency: holidays/special occasions only Comment: cramping Patient Tobacco Use Status: Never used Tobacco e-Cigarette/Vaping Use: Never Used Second Hand Smoke Exposure: No service: No Current occupational status: employed 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[employer] Cognitive needs: No Hearing needs: No Vision needs: No Female Reproductive History Menstrual Age of Menarche: 12 Total pregnancies: 2 Full term: 2 Date of last pap smear: 10/27/21 Date of Mammogram: 11/19/24 (bi rad 1) Review of Systems Const All systems reviewed & are unremarkable except as noted in HPI and below Card Reports as per HPI Resp Reports as per HPI GI Reports as per HPI and Reports no additional complaints Reports as per HPI Physical Exam Vital Signs: Last Vital Signs BP 106/60 02/14/25 11:25 BMI result Body Mass Index 21.6 Const General: cooperative, healthy appearing and comfortable Chest Chest palpation & inspection: normal inspection of the chest and normal palpation of entire chest wall Breast/axilla inspection: normal inspection of the breasts and normal inspection of the axillae Breast/axilla palpation: normal palpation of the breasts, normal palpation of the axillae and no axillary lymphadenopathy Resp Effort & Inspection: normal respiratory effort Auscultation: clear to auscultation bilaterally Percussion: percussion normal Cardio Palpation: normal PMI Rate: regular rate Rhythm: regular rhythm Heart sounds: no murmurs and no rubs Peripheral pulses: Peripheral pulses 2+ throughout GI Inspection: Yes normal to inspection Palpation (GI): Soft to palpation, nontender, no guarding, not rigid and No hepatosplenomegaly present Percussion: Yes normal to percussion Auscultation: normal bowel sounds Rectal Exam - Female: deferred General: Yes bladder normal to palpation External Female Exam: No lesion Speculum Exam - Vagina: normal appearance of the vagina, normal palpation, normal vaginal discharge and not erythematous Speculum Exam - Cervix: normal appearance of the cervix and normal palpation Bimanual exam- vagina & uterus: normal bimanual exam, normal palpation, uterine size normal, bladder normal to palpation, consistency normal and normal palpation Bimanual Exam- Adnexa, other: normal adnexae, no masses and no tenderness Assessment & Plan Assessment & Plan (1) Well woman exam: Code(s): Z01.419 - Encounter for gynecological examination (general) (routine) without abnormal findings Category: Medical Plan: Co testing not indicated this year. Counseled the patient about the recommended dietary allowance of 1200 mg of Calcium & 600 IU of vitamin D. Instructions given the patient to schedule next screening Mammogram 11/14. The patient was instructed to perform monthly self-breast exams and schedule annual exam in a year. All questions answered and the patient verbalized understanding. (2) Postcoital bleeding: Code(s): N93.0 - Postcoital and contact bleeding Category: Medical Plan: Discussed with the patient the differential diagnosis of post menopausal bleeding with normal pelvic exam including but not limited to, endometrial hyperplasia, cancer, polyps and other causes; GC/CT and co testing done, recommended ultrasound to measure the endometrial stripe; discussed with the patient that if the endometrial thickness is 4 mm or less the negative predictive value of endometrial pathology is 99%, otherwise If endometrial thickness is more than 4 mm will proceed with endometrial sampling versus hysteroscopy D&C polypectomy depending on the ultrasound findings. Instructed the patient to schedule an ultrasound with a follow-up appointment in 2 weeks. All questions answered, the patient verbalized understanding and agreed with the plan. This note was generated with a voice recognition program. Some errors may have been overlooked during the review of this note. Sometimes these errors may affect the content or meaning of a given sentence. Orders: Orders US pelvic and transvaginal Today N93.0 - Postcoital and contact bleeding, N95.0 - Postmenopausal bleeding Coding Level of Care Code Est Pt Level 3 (98112) Est Pt Prev Care 40-64y(82684) Diagnoses Well woman exam Z01.419 Postcoital bleeding N93.0
== END 2025-02-14 11:49 | disposition home or self-care (01) ==
LOC: HO.HWS 11:22
PROVIDERS: PCP Physician Assistant; Visit Provider Obstetrics & Gynecology
DX: Z01.419 Encounter for gynecological examination (general) (routine) without abnormal findings (principal); N93.0 Postcoital and contact bleeding
CPT/HCPCS: 99213; 99396; 99459

== ENCOUNTER 2025-03-08 15:27 | Outpatient (REF) | payer OTHER, SELFPAY ==
--- NOTE | ~2025-03-08 | US_ITS ---
EXAMINATION: US PELVIS CLINICAL INFORMATION: Postmenopausal bleeding. COMPARISON: 11/10/2021. TECHNIQUE: Ultrasound of the pelvis is performed using both transabdominal and transvaginal transducers along with Doppler. Transvaginal imaging is performed due to inadequate visualization transabdominally. FINDINGS: Uterus: The uterus is anteverted, anteflexed, and measures 7.2 x 3.3 x 4.5 cm. Cervix has a normal appearance. The double wall endometrial thickness is 2 mm. It is uniform without irregularity. The uterus is smooth in contour and has mildly heterogeneous myometrial echogenicity. There is a slightly smaller ventral right likely submucosal fibroid currently measuring 1.8 x 1.6 x 1.8 cm (previously 1.9 x 2.2 x 2.1 cm). No additional fibroids seen. Adnexa: Both ovaries are visualized. There is normal color flow to the adnexa. There is no ovarian torsion. There is no pelvic ascites or fluid collection. Right ovary measures 2.6 x 1.3 x 1.8 cm. Volume = 3.2 mL. There is a 1.0 cm simple cyst present. Left ovary measures 2.8 x 1.2 x 1.1 cm. Volume = 1.9 mL. Normal sonographic appearance. US/US pelvic and transvaginal IMPRESSION: 1. Slightly smaller right ventral submucosal fibroid in the mid uterine segment measuring up to 1.8 cm. 2. Normal endometrium measuring 2 mm thickness. 3. There is a 1.0 cm simple cyst in the right ovary. 4. Normal left ovary. Electronically signed by: Nicola Gray MD 03/08/2025 04:48 PM EDT
== END 2025-03-08 15:28 | disposition home or self-care (01) ==
LOC: HO.US 15:27
PROVIDERS: PCP Physician Assistant; Visit Provider Obstetrics & Gynecology
DX: N95.0 Postmenopausal bleeding (principal); N93.0 Postcoital and contact bleeding
CPT/HCPCS: 76830; 76856

== ENCOUNTER → 2025-03-08 15:29 | Outpatient (BNV) | payer OTHER, SELFPAY | PROVIDERS: PCP Physician Assistant; Visit Provider Radiology Diagnostic Radiology | DX: D25.9 Leiomyoma of uterus, unspecified (principal); N83.201 Unspecified ovarian cyst, right side; N95.0 Postmenopausal bleeding | CPT/HCPCS: 76830; 76856 ==

== ENCOUNTER 2025-03-15 12:27 | Outpatient (AMB) | payer OTHER, SELFPAY ==
--- NOTE | 2025-03-15 12:27 | MHC.OFFVIS ---
Intake Visit Reasons: ultrasound results Allergies No Known Allergies Allergy (Verified 02/14/25 11:25) HPI Comments Details: The patient is scheduled tele health visit for ultrasound follow-up for postcoital bleeding which showed the following: Uterus: The uterus is anteverted, anteflexed, and measures 7.2 x 3.3 x 4.5 cm. Cervix has a normal appearance. The double wall endometrial thickness is 2 mm. It is uniform without irregularity. The uterus is smooth in contour and has mildly heterogeneous myometrial echogenicity. There is a slightly smaller ventral right likely submucosal fibroid currently measuring 1.8 x 1.6 x 1.8 cm (previously 1.9 x 2.2 x 2.1 cm). No additional fibroids seen. Adnexa: Both ovaries are visualized. There is normal color flow to the adnexa. There is no ovarian torsion. There is no pelvic ascites or fluid collection. Right ovary measures 2.6 x 1.3 x 1.8 cm. Volume = 3.2 mL. There is a 1.0 cm simple cyst present. Left ovary measures 2.8 x 1.2 x 1.1 cm. Volume = 1.9 mL. Normal sonographic appearance Last co testing in 02/12 was negative GC/CT were negative The patient reports no more bleeding PFSH Medical History Lumbar spine pain Cervical (neck) region somatic dysfunction Family history of colon cancer Retinacular ganglion, volar (VRG) Trigger middle finger of right hand No pertinent past medical history Surgical History Hx of dilation and curettage S/P trigger finger release Hx of colonoscopy Family History Father Stroke Mother Cancer Colon cancer TIA (transient ischemic attack) Family/Other Bipolar 1 disorder Social History Housing: House Are you a primary child care centre manager to a significant other at home: No Do you presently have visiting nurse or other home services: No Alcohol intake: current Alcohol intake frequency: holidays/special occasions only Comment: cramping Patient Tobacco Use Status: Never used Tobacco e-Cigarette/Vaping Use: Never Used Second Hand Smoke Exposure: No service: No Current occupational status: employed 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[place] Cognitive needs: No Hearing needs: No Vision needs: No Female Reproductive History Menstrual Age of Menarche: 12 Review of Systems Const All systems reviewed & are unremarkable except as noted in HPI and below Reports as per HPI and Reports no additional complaints GI Reports no additional complaints Reports no additional complaints Telehealth Telehealth Telehealth Platform: Telephone Location of provider rendering services: practice address Location of patient: address on file Patient Identification confirmed using: Name, : Yes Telehealth method: video Patient verbally consented to treatment: Yes Patient verbally consented to billing insurance company: Yes Patient informed of any privacy concerns related to visit: Yes Minutes spent on Phone/Video with Pt.: 5 Assessment & Plan Assessment & Plan (1) Uterine myoma: Code(s): D25.9 - Leiomyoma of uterus, unspecified Category: Medical Plan: Discussed with the patient the findings on pelvic ultrasound recommended repeat pelvic ultrasound in 6. Instructions given to patient to call in case any of the following occurs: pressure symptoms, abnormal uterine bleeding, pelvic pain; and to schedule a six-months pelvic ultrasound (order placed) and a follow-up appointment . All questions answered, the patient verbalized understanding and agreed with the plan . (2) Ovarian cyst: Code(s): N83.209 - Unspecified ovarian cyst, unspecified side Category: Medical Plan: Discussed with the patient the ovarian cyst by ultrasound. Discussed with the patient the Ultrasound findings, the main limitation of transvaginal ultrasonography alone as a diagnostic tool to distinguish benign from malignant masses relates to its lack of specificity and low positive predictive value for cancer. The differential diagnosis discussed with the patient includes the following but not limited to: benign and malignant gynecological and non-gynecological causes. Serum tumor marker CA 125 wnl Discussed with the patient that CA 125 is a protein associated with epithelial ovarian malignancies, but also frequently expressed at lower levels by nonmalignant tissue. Normal CA 125 levels can be found in ovarian cancer patients. Elevation of CA 125 levels may occur in nonmalignant gynecologic conditions, and in non-gynecologic cancers, It is most useful in postmenopausal women and in identifying non mucinous epithelial cancer. The CA 125 level is elevated in 80% of patients with epithelial ovarian cancer but in only 50% of patients with stage I disease. The overall sensitivity of CA 125 testing in distinguishing benign from malignant adnexal masses reportedly ranges from 61% to 90%; specificity ranges from 71% to 93%, positive predictive value ranges from 35% to 91%, and negative predictive value ranges from 67% to 90%. Recommended expectant management with repeat US in repeating pelvic US in 6 months from previous US. If the ovarian cyst is persistent larger and / or changes in Ultrasound appearance & became complex looking, or higher CA 125 will refer to gynecologic Oncology. All pros, cons, risks and benefits of each approach were discussed with the patient including but not limited to a delay in the diagnosis and treatment of ovarian cancer affecting the prognosis; The patient decided to go ahead with expectant management. All questions were answered & the patient verbalized understanding and agreed with the plan (3) Postcoital bleeding: Code(s): N93.0 - Postcoital and contact bleeding Category: Medical Plan: Discussed with the patient the results of the pelvic ultrasound showing an endometrial stripe thickness of 2 mm. Explained to the patient with an endometrial stripe of 4 mm &/or less, there is a high negative predictive value in detecting endometrial pathology including endometrial hyperplasia, polyps or malignancy. Therefore, there is no indication for endometrial sampling. Discussed with the patient the sensitivity, specificity, and positive and the negative predictive value of using ultrasound in detecting endometrial pathology. The patient was instructed to call if bleeding recurs, will proceed with endometrial sampling out endometrial pathology. All questions were answered and the patient verbalized understanding and agreed with the plan. I spent a total of 20 minutes reviewing the chart, talking to the patient via video and documenting in the medical record. Orders: Orders US pelvic and transvaginal 6 Months N83.209 - Unspecified ovarian cyst, unspecified side CA-125 Today N83.209 - Unspecified ovarian cyst, unspecified side Coding Level of Care Code Tele Est Pt Level 3 (95542) Diagnoses Uterine myoma D25.9 Ovarian cyst N83.209 Postcoital bleeding N93.0
== END 2025-03-15 13:21 | disposition home or self-care (01) ==
LOC: HO.HWS 12:27
PROVIDERS: PCP Physician Assistant; Visit Provider Obstetrics & Gynecology
DX: D25.9 Leiomyoma of uterus, unspecified (principal); N83.209 Unspecified ovarian cyst, unspecified side; N93.0 Postcoital and contact bleeding
CPT/HCPCS: 99213

== ENCOUNTER 2025-04-26 16:26 | Outpatient (REF) | payer OTHER, SELFPAY ==
[2025-04-27 09:38] LABS: CA-125 6 U/mL (<35)
[2025-04-29 16:38] LABS: TS Negative Control Passed; TS Panel A 0; TS Panel B 0; TS Positive Control Passed; TSpotTB Negative (Negative)
== END 2025-04-26 16:27 | disposition home or self-care (01) ==
LOC: HO.LAB 16:26
PROVIDERS: Absent Provider Obstetrics & Gynecology; PCP Physician Assistant; Visit Provider Physician Assistant
DX: Z11.1 Encounter for screening for respiratory tuberculosis (principal); N83.209 Unspecified ovarian cyst, unspecified side
CPT/HCPCS: 36415; 86304; 86481

== ENCOUNTER 2025-10-12 08:13 | Outpatient (REF) | payer OTHER, SELFPAY ==
--- NOTE | ~2025-10-12 | US_ITS ---
EXAMINATION: US PELVIS, COMPLETE CLINICAL INFORMATION: N83.209 - Unspecified ovarian cyst, unspecified side COMPARISON: Ultrasound 03/08/2025 TECHNIQUE: Transabdominal and transvaginal imaging was performed. FINDINGS: LMP: Postmenopausal Uterus is anteverted, retroflexed , measuring 6.9 x 3.4 x 6.2 cm. Redemonstrated heterogeneous lesion, probable submucosal fibroid measuring 1.7 x 1.7 x 1.5 cm, stable from previous. Endometrial thickness 0.3 cm. Right ovary measures 2.2 x 2 x 1.7 cm. Volume 3.8 mL. Vascular flow is seen. 1.3 cm simple cyst. Left ovary measures 1.6 x 1.5 x 1.1 cm. Volume 1.3 mL. Vascular flow is seen. No free fluid in the cul-de-sac. US/US pelvic and transvaginal IMPRESSION: 1. Submucosal fibroid measuring 1.7 cm, stable from previous 2. Endometrium is within normal limits measuring 0.3 cm 3. Right ovarian 1.3 cm simple cyst. Electronically signed by: Rj Clemens MD 10/14/2025 10:45 AM [facility]
== END 2025-10-12 08:14 | disposition home or self-care (01) ==
LOC: HO.US 08:13
PROVIDERS: PCP Physician Assistant; Visit Provider Obstetrics & Gynecology
DX: N83.201 Unspecified ovarian cyst, right side (principal)
CPT/HCPCS: 76830; 76856

== ENCOUNTER → 2025-10-12 08:18 | Outpatient (BNV) | payer OTHER, SELFPAY | PROVIDERS: PCP Physician Assistant; Visit Provider Radiology Diagnostic Ultrasound | DX: D25.0 Submucous leiomyoma of uterus (principal); N83.201 Unspecified ovarian cyst, right side | CPT/HCPCS: 76830; 76856 ==

== ENCOUNTER 2025-10-16 08:58 | Outpatient (AMB) | payer OTHER, SELFPAY ==
--- NOTE | 2025-10-16 08:58 | A.OFFVIS_ITS ---
Intake Visit Reasons: Ultrasound Follow up [employer] Required: No Information Interpreted: non-clinical & clinical Allergies No Known Allergies Allergy (Verified 10/16/25 08:59) Post menopausal: Yes HPI Comments Details: The patient is scheduled a telehealth visit for follow-up pelvic ultrasound regarding 1 cm right simple ovarian cyst seen in 03/15 on pelvic ultrasound 10/12 pelvic ultrasound showed the following: Uterus is anteverted, retroflexed , measuring 6.9 x 3.4 x 6.2 cm. Redemonstrated heterogeneous lesion, probable submucosal fibroid measuring 1.7 x 1.7 x 1.5 cm, stable from previous. Endometrial thickness 0.3 cm. Right ovary measures 2.2 x 2 x 1.7 cm. Volume 3.8 mL. Vascular flow is seen. 1.3 cm simple cyst. Left ovary measures 1.6 x 1.5 x 1.1 cm. Volume 1.3 mL. Vascular flow is seen. No free fluid in the cul-de-sac. PFS Medical History Lumbar spine pain Cervical (neck) region somatic dysfunction Family history of colon cancer Retinacular ganglion, volar (VRG) Trigger middle finger of right hand No pertinent past medical history Surgical History Hx of dilation and curettage S/P trigger finger release Hx of colonoscopy Family History Father Stroke Mother Cancer Colon cancer TIA (transient ischemic attack) Family/Other Bipolar 1 disorder Social History Housing: House Are you a primary director of health care marketing to a significant other at home: No Do you presently have visiting nurse or other home services: No Alcohol intake: current Alcohol intake frequency: holidays/special occasions only Comment: cramping Patient Tobacco Use Status: Never used Tobacco e-Cigarette/Vaping Use: Never Used Second Hand Smoke Exposure: No service: No Current occupational status: employed 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[place] Cognitive needs: No Hearing needs: No Vision needs: No Female Reproductive History Menstrual Age of Menarche: 12 Review of Systems Const All systems reviewed & are unremarkable except as noted in HPI and below Reports as per HPI and Reports no additional complaints GI Reports no additional complaints Reports no additional complaints Telehealth Telehealth Telehealth Platform: [facility] Location of provider rendering services: practice address Location of patient: address on file Patient Identification confirmed using: Name, : Yes Telehealth method: video Patient verbally consented to treatment: Yes Patient verbally consented to billing insurance company: Yes Patient informed of any privacy concerns related to visit: Yes Minutes spent on Phone/Video with Pt.: 5 Assessment & Plan Assessment & Plan (1) Ovarian cyst: Code(s): N83.209 - Unspecified ovarian cyst, unspecified side Category: Medical Plan: Discussed with the patient the ovarian cyst by ultrasound. Discussed with the patient the Ultrasound findings, the main limitation of transvaginal ultrasonography alone as a diagnostic tool to distinguish benign from malignant masses relates to its lack of specificity and low positive predictive value for cancer. The differential diagnosis discussed with the patient includes the following but not limited to: benign and malignant gynecological and non- gynecological causes. Serum tumor marker CA 125 wnl in 05/15. Discussed with the patient options of treatment , in case CA 125 is not elevated, including laparoscopy ovarian salpingo-oophorectomy vs. expectant management with repeat US in repeating pelvic US in 6 months from previous US. If the ovarian cyst is persistent larger and / or changes in Ultrasound appearance & became complex looking, or higher CA 125 will refer to gynecologic Oncology. All pros, cons, risks and benefits of each approach were discussed with the patient including but not limited to a delay in the diagnosis and treatment of ovarian cancer affecting the prognosis; The patient decided to go ahead with expectant management. CA 125 ordered to be done soon, Pelvic ultrasound ordered in six-months. Instructions given the patient is schedule a follow-up appointment in six-months. All questions were answered & the patient verbalized understanding and agreed with the plan I spent a total of 20 minutes reviewing the chart, talking to the patient via video and documenting in the medical record. Orders: Orders US pelvic and transvaginal 6 Months N83.209 - Unspecified ovarian cyst, unspecified side CA-125 Today N83.209 - Unspecified ovarian cyst, unspecified side Coding Level of Care Code Tele Est Pt Level 3 (17418) Diagnoses Ovarian cyst N83.209
== END 2025-10-16 09:59 | disposition home or self-care (01) ==
LOC: HO.HWS 08:58
PROVIDERS: PCP Physician Assistant; Visit Provider Obstetrics & Gynecology
DX: N83.209 Unspecified ovarian cyst, unspecified side (principal)
CPT/HCPCS: 99213